=== PATIENT | male | born 1930 | race African-American/Black ===

== ENCOUNTER 2016-11-01 11:58 | Emergency (ER) | payer OTHER ==
[2016-11-01 12:12] VITALS: BMI 27.1
[2016-11-01] MEDS ORDERED: ACETAMINOPHEN 325 MG TABLET (FP) PO ONE (12:59)
--- NOTE | 2016-11-01 13:00 | PDOC ---
History of Present Illness - General History Source: Patient, Family, Old Records Exam Limitations: No Limitations - History of Present Illness Initial Comments: 11/01/16 14:23 The patient is an 86-year-old male, from home, accompanied by family, with a significant past medical history of hypertension, hypercholesterolemia, myocardial infarction with an AICD, diabetes mellitus, diverticulitis who presents to the emergency department via walk-in for further evaluation of cold- like symptoms for the past 2 days. Patient states he has been experiencing cold- like symptoms of an intermittent non-productive cough, chills, cold sweats, rhinorrhea and sneezing. Patient also reports experiencing chest pain, but it is only present when he coughs. He also notes experiencing a band-like headache that was initially present only with coughing, but has not remained constant. He denied sick contacts and recent travel. No sore throat, shortness of breath, lightheadedness, dizziness, abdominal pain, nausea, vomiting. Allergies: Penicillin. IV Contrast Dye. Past Surgical History: AICD Placement ([employer]). Appendectomy. Cholecystectomy. Right hip fracture with hardware. Social History: Former smoker. No eTOH and recreational drug use. Primary Care Physician: Dr. Hema Garrido [phone] Forging Dies Final Finisher: Dr. Mandeep Garcia [phone] <Monica Barrios - Last Filed: 11/01/16 14:24> <Enrique Lizama - Last Filed: 11/01/16 16:25> - General Chief Complaint: Cold Symptoms Stated Complaint: HEADACHES, NAUSEA, COUGH Time Seen by Provider: 11/01/16 12:36 Past History <Monica Barrios - Last Filed: 11/01/16 14:24> - Past Medical History Anemia: No Asthma: No Cancer: No Cardiac Disorders: Yes ([place],VENTRICULAR ARRYTHMIA) CVA: No COPD: No CHF: No Dementia: No Diabetes: No GI Disorders: Yes (ABDOMINAL PAIN,DIVERTICULITIS,DIARRHEA) Disorders: No HTN: Yes Hypercholesterolemia: Yes Liver Disease: No Suicide Attempt (Hx): No Seizures: No Thyroid Disease: No - Surgical History Appendectomy: Yes Cardiac Surgery: ([employer]) Cholecystectomy: Yes Lung Surgery: No Neurologic Surgery: No Orthopedic Surgery: Yes (H/O RIGHT FX HIP WITH HARDWARE) - Immunization History Immunization Up to Date: Yes - Psycho/Social/Smoking Cessation Hx Anxiety: No Suicidal Ideation: No Smoking Status: No Smoking History: Never smoked Have you smoked in the past 12 months: No Number of Cigarettes Smoked Daily: 0 If you are a former smoker, when did you quit?: 40YRS AGO Information on smoking cessation initiated: No Hx Alcohol Use: No Drug/Substance Use Hx: No Substance Use Type: None Hx Substance Use Treatment: No <Enrique Lizama - Last Filed: 11/01/16 16:25> - Past Medical History Allergies/Adverse Reactions: Allergies Allergy/AdvReac Type Severity Reaction Status Date / Time Penicillins Allergy Swelling Verified 11/01/16 12:12 IVP DYE Allergy Hives Uncoded 11/01/16 12:12 Home Medications: Ambulatory Orders Amlodipine Besylate [Norvasc -] 10 mg PO DAILY 11/01/16 Carvedilol [Coreg -] 25 mg PO DAILY 11/01/16 Ezetimibe [Zetia] 10 mg PO DAILY 11/01/16 Folic Acid 1 mg PO DAILY 11/01/16 Furosemide [Lasix -] 20 mg PO DAILY 11/01/16 Losartan Potassium [Cozaar -] 50 mg PO DAILY 11/01/16 Omeprazole 40 mg PO DAILY 11/01/16 Oseltamivir Phosphate [Tamiflu -] 75 mg PO BID #10 capsule 11/01/16 Simvastatin [Zocor -] 20 mg PO HS 11/01/16 Tamsulosin HCl [Flomax] 0.4 mg PO DAILY 11/01/16 Warfarin Sodium [Coumadin] 2 mg PO DAILY 11/01/16 Review of Systems - Review of Systems Able to Perform ROS?: Yes Comments:: 11/01/16 14:23 CONSTITUTIONAL: Reported: +Chills. +Cold Sweats. No reported: Fever, Diaphoresis, Generalized Weakness, Malaise, Loss of Appetite HEENT: Reported: Rhinorrhea No reported:, Nasal Congestion, Throat Pain, Throat Swelling, Difficulty Swallowing, Mouth Swelling, Ear Pain, Eye Pain, Visual Changes CARDIOVASCULAR: Reported: +Chest Pain. No reported: Syncope, Palpitations, Irregular Heart Rate , Lightheadedness, Peripheral Edema RESPIRATORY: Reported: +Cough. No reported: Shortness of Breath, SOB with Exertion, Orthopnea , Wheezing, Stridor, Hemoptysis GASTROINTESTINAL: No reported: Abdominal pain, Abdominal Distension, Nausea, Vomiting, Diarrhea, Constipation, Melena, Hematochezia GENITOURINARY: No reported: Dysuria, Frequency, Urgency, Hesitancy, Flank Pain, Genital Pain MUSCULOSKELETAL: No reported: Myalgia, Arthralgia, Joint Swelling, Back pain, Neck Pain SKIN: No reported: Rash, Itching, Pallor HEMEATOLOGIC/IMMUNOLOGIC: No reported: Easy Bleeding, Easy Bruising, Lymphadenopathy, Frequent infections ENDOCRINE: No reported: Unexplained Weight Gain, Unexplained Weight Loss, Heat Intolerance , Cold Intolerance NEUROLOGIC: Reoprted: +Headache. No reported: Focal Weakness, Paresthesias, Vertigo, Lightheadedness, Unsteady Gait, Seizure, Mental Status Changes, Incontinence PSYCHIATRIC: No reported: Anxiety, Depression <Monica Barrios - Last Filed: 11/01/16 14:24> *Physical Exam - Vital Signs Last Vital Signs Temp Pulse Resp BP Pulse Ox 100.6 F H 90 18 134/73 97 11/01/16 12:09 11/01/16 12:09 11/01/16 12:09 11/01/16 12:09 11/01/16 12:09 - Physical Exam Comments: 11/01/16 14:24 GENERAL: The patient is awake, alert, and fully oriented, Nontoxic - in no acute distress. HEAD: Normocephalic, atraumatic. EYES: extraocular movements intact, sclera anicteric, conjunctiva clear. ENT: Normal voice, Moist mucous membranes, mild nasal congestion NECK: Normal range of motion, supple LUNGS: Breath sounds equal, clear to auscultation bilaterally. No wheezes, no rhonchi, no rales. HEART: Regular rate and rhythm, normal S1 and S2 without murmur, rub or gallop. ABDOMEN: Soft, nontender, normoactive bowel sounds. No guarding, no rebound. No CVA tenderness EXTREMITIES: Normal range of motion, no edema. No clubbing or cyanosis. No cords, erythema, or tenderness. NEUROLOGICAL: No facial assymetry, Normal speech, moving all 4 extermities spontaneously and symmetrically PSYCH: Normal mood, normal affect. SKIN: Warm, Dry, normal turgor. <Monica Barrios - Last Filed: 11/01/16 14:24> - Vital Signs Last Vital Signs Temp Pulse Resp BP Pulse Ox 100.6 F H 90 18 134/73 97 11/01/16 12:09 11/01/16 12:09 11/01/16 12:09 11/01/16 12:09 11/01/16 12:09 <Enrique Lizama - Last Filed: 11/01/16 16:25> Heart Score/ECG Review - ECG Impressions Comment:: 11/01/16 15:51 Twelve-lead EKG was performed and reviewed by me. There is normal sinus rhythm with a normal rate. Rate of 61 Left axis deviation Right bundle-branch block Q waves in the inferolateral leads <Enrique Lizama - Last Filed: 11/01/16 16:25> ED Treatment Course - LABORATORY CBC & Chemistry Diagram: 11/01/16 13:10 11/01/16 13:10 - ADDITIONAL ORDERS Additional order review: Laboratory Results 11/01/16 13:10 Sodium 143 Potassium 4.6 Chloride 106 Carbon Dioxide 27 Anion Gap 10 BUN 15 D Creatinine 1.9 H D Creat Clearance w eGFR 33.78 Random Glucose 110 H Calcium 8.7 Total Bilirubin 0.7 AST 39 H D ALT 34 Alkaline Phosphatase 82 Total Protein 7.2 Albumin 4.0 11/01/16 13:10 Influenza Types A,B Antigen (NICK) - Final Nasopharyngeal Swab - Final 11/01/16 13:10 RBC 4.92 MCV 90.0 MCHC 33.6 RDW 16.0 H MPV 8.1 Neutrophils % Y Lymphocytes % Y - Medications Given in the ED: ED Medications Discontinued Medications Generic Name Dose Route Start Last Admin Trade Name Carlo PRN Reason Stop Dose Admin Acetaminophen 650 mg 11/01/16 12:59 11/01/16 13:15 Tylenol - PO 11/01/16 13:00 650 mg ONCE ONE Administration <Monica Barrios - Last Filed: 11/01/16 14:24> - LABORATORY CBC & Chemistry Diagram: 11/01/16 13:10 11/01/16 13:10 <Enrique Lizama - Last Filed: 11/01/16 16:25> Medical Decision Making - Medical Decision Making 11/01/16 13:00 86y M hx of htn, hl, cad, on coumadin, presents with nasal congestion, sneezing , nonproductive cough, chills x 3 days, no recent trauvel, on exam pt in no distress, lungs clear. suspect influenza/flu like illness vs. pna will ck labs tylenol for fever will ck cxr ekg will reassess A portion of this note was documented by scribe services under my direction. I have reviewed the details of the note, within reason, and agree with the documentation with the following case summary and management plan written by me 11/01/16 15:52 Patient's blood work was reviewed The patient's chest x-ray is negative for any acute infiltrates The patient's influenza is positive We'll treat the patient with Tamiflu Will discharge patient follow up with her primary care I discussed the physical exam findings, ancillary test results and final diagnoses with the patient. I answered all of the patient's questions. The patient was satisfied with the care received and felt comfortable with the discharge plan and treatment plan. The patient will call their primary care physician within 24 hours to arrange follow-up and will return to the Emergency Department with any new, persistent or worsening symptoms. <Enrique Lizama - Last Filed: 11/01/16 16:25> *DC/Admit/Observation/Transfer - Attestations Scribe Attestion: 11/01/16 14:24 Documentation prepared by Monica Barrios, acting as medical field representative for Enrique Lizama MD. <Monica Barrios - Last Filed: 11/01/16 14:24> - Discharge Dispostion Admit: No <Enrique Lizama - Last Filed: 11/01/16 16:25> Diagnosis at time of Disposition: Influenza A - Discharge Dispostion Disposition: HOME Condition at time of disposition: Improved - Prescriptions Prescriptions: Oseltamivir Phosphate [Tamiflu -] 75 mg PO BID #10 capsule - Referrals Referrals: Hema Garrido MD [Primary Care Provider] - - Patient Instructions Printed Discharge Instructions: DI for Influenza -- Adult Additional Instructions: Return to the emergency department immediately with ANY new, persistent or worsening symptoms. You MUST call and follow up with your doctor tomorrow for further evaluation of your symptoms. Results were discussed with you. Please make sure your doctor reviews the results of your emergency evaluation. If you had any xrays during your visit, it was read preliminarily by myself, a Radiologist will review it and if there are any additional findings we will call you. Print Language: ROMANSH
[2016-11-01] MEDS ORDERED: ACETAMINOPHEN 325 MG TABLET (FP) ONE (13:06)
[2016-11-01 13:24] LABS: MCH 30.3 pg (25.7-33.7); MCHC 33.6 g/dl (32.0-35.9); MEAN PLT VOLUME 8.1 fl (7.5-11.1); PLATELET COUNT 115 K/MM3 (134-434); WHITE BLOOD COUNT 8.8 K/mm3 (4.0-10.0)
[2016-11-01 13:43] LABS: CALCIUM 8.7 mg/dL (8.5-10.1)
[2016-11-01 13:49] LABS: BILIRUBIN,TOTAL 0.7 mg/dL (0.2-1.0); CREATININE 1.9 mg/dL (0.7-1.3); TOT PROT 7.2 g/dl (6.4-8.2)
[2016-11-01] MEDS ORDERED: OSELTAMIVIR PHOSPHATE 75 MG CAPSULE PO ONE (15:51)
[2016-11-01] MEDS ORDERED: OSELTAMIVIR PHOSPHATE 75 MG CAPSULE ONE (16:19)
[2016-11-01] MEDS ORDERED: IBUPROFEN 400 MG TABLET (FP) PO ONE ×2 (17:05→17:23)
--- NOTE | 2016-11-01 17:23 | EKG ---
Test Reason : Blood Pressure : / mmHG Vent. Rate : 061 BPM Atrial Rate : 061 BPM P-R Int : 208 ms QRS Dur : 134 ms QT Int : 392 ms P-R-T Axes : 032 -72 -21 degrees QTc Int : 394 ms Suspect unspecified pacemaker failure BASELINE ARTIFACT UNDETERMINED RHYTHM LEFT AXIS DEVIATION RIGHT BUNDLE BRANCH BLOCK MINIMAL VOLTAGE CRITERIA FOR LVH, MAY BE NORMAL VARIANT INFERIOR INFARCT (CITED ON OR BEFORE 20-JUL-2014) ANTEROLATERAL INFARCT , AGE UNDETERMINED ABNORMAL ECG WHEN COMPARED WITH ECG OF 27-AUG-2015 15:51, POSSIBLE RHYTHM CHANGE CLINICAL CORRELATION IS RECOMMENDED Confirmed by KAVITHA LONG MD ([id number]) on 11/01/2016 5:23:13 PM Referred By: Confirmed By:KAVITHA LONG MD
[2016-11-01 17:28] VITALS: BP 125/63; PULSE 84; TEMP 101
== END 2016-11-01 17:16 | disposition home or self-care (01) ==
LOC: JER 11:58
DX: J09.X2 Influenza due to identified novel influenza A virus with other respiratory manifestations (principal); I25.2 Old myocardial infarction; I10 Essential (primary) hypertension; Z95.810 Presence of automatic (implantable) cardiac defibrillator; E78.00 Pure hypercholesterolemia, unspecified
CPT/HCPCS: 36415; 71020-TC; 80053; 85025; 87804; 93005; 93010; 99282-25

== ENCOUNTER 2017-01-31 16:03 | Emergency (ER) | payer OTHER, BC ==
[2017-01-31 16:17] VITALS: BP 146/93; PULSE 85; TEMP 98.4; BMI 25.2
--- NOTE | 2017-01-31 16:59 | PDOC ---
History of Present Illness - General History Source: Patient, Family, Old Records Exam Limitations: No Limitations - History of Present Illness Initial Comments: 01/31/17 17:38 The patient is an 86 year old male, with a significant past medical history of hypertension, hyperlipidemia, diabetes, [place] s/p AICD and diverticulitis, who presents to the emergency department with one episode (patient states a small amount) of rectal bleeding earlier this afternoon. The patient reports that he has been feeling constipated over the past 2-3 days. Currently in the ED, the patient is additionally endorsing diffuse abdominal pain, which he states is worst in the RLQ. The patient denies a past history of hemorrhoids. The patient reports that he is on Coumadin. The patient's family is at the bedside. Allergies: Penicillins, IV Contrast Dye. Past Surgical History: AICD Placement ([employer]); Appendectomy; Cholecystectomy; Right hip fracture w/ hardware. Social History: Former smoker (quit 40 years ago). Denies alcohol or drug use. PCP: Dr. Hema Garrido Parts Room Associate: Dr. Garcia <Jeni Esparza - Last Filed: 01/31/17 23:32> <Maria T Orourke - Last Filed: 02/01/17 01:44> - General Chief Complaint: Rectal Bleed Stated Complaint: RECTAL BLEED/COUMADIN Time Seen by Provider: 01/31/17 16:48 Past History <Jeni Esparza - Last Filed: 01/31/17 23:32> - Past Medical History Anemia: No Asthma: No Cancer: No Cardiac Disorders: Yes ([place],VENTRICULAR ARRYTHMIA) CVA: No COPD: No CHF: No Dementia: No Diabetes: No GI Disorders: Yes (ABDOMINAL PAIN,DIVERTICULITIS,DIARRHEA) Disorders: No HTN: Yes Hypercholesterolemia: Yes Liver Disease: No Suicide Attempt (Hx): No Seizures: No Thyroid Disease: No - Surgical History Appendectomy: Yes 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) Cholecystectomy: Yes Lung Surgery: No Neurologic Surgery: No Orthopedic Surgery: Yes (H/O RIGHT FX HIP WITH HARDWARE) - Immunization History Immunization Up to Date: Yes - Psycho/Social/Smoking Cessation Hx Anxiety: No Suicidal Ideation: No Smoking Status: No Smoking History: Never smoked Have you smoked in the past 12 months: No Number of Cigarettes Smoked Daily: 0 If you are a former smoker, when did you quit?: 40YRS AGO Information on smoking cessation initiated: No Hx Alcohol Use: No Drug/Substance Use Hx: No Substance Use Type: None Hx Substance Use Treatment: No <Maria T Orourke - Last Filed: 02/01/17 01:44> - Past Medical History Allergies/Adverse Reactions: Allergies Allergy/AdvReac Type Severity Reaction Status Date / Time Penicillins Allergy Swelling Verified 01/31/17 16:14 IVP DYE Allergy Hives Uncoded 01/31/17 16:14 Home Medications: Ambulatory Orders Amlodipine Besylate [Norvasc -] 5 mg PO DAILY 11/01/16 Carvedilol [Coreg -] 25 mg PO DAILY 11/01/16 Ezetimibe [Zetia] 10 mg PO DAILY 11/01/16 Folic Acid 1 mg PO DAILY 11/01/16 Furosemide [Lasix -] 20 mg PO DAILY 11/01/16 Losartan Potassium [Cozaar -] 50 mg PO DAILY 11/01/16 Omeprazole 40 mg PO DAILY 11/01/16 Simvastatin [Zocor -] 20 mg PO HS 11/01/16 Tamsulosin HCl [Flomax] 0.4 mg PO DAILY 11/01/16 Warfarin Sodium [Coumadin] 2 mg PO DAILY 11/01/16 Review of Systems - Review of Systems Able to Perform ROS?: Yes Comments:: 01/31/17 17:17 GENERAL/CONSTITUTIONAL: No fever or chills. No weakness. HEAD, EYES, EARS, NOSE AND THROAT: No change in vision. No ear pain or discharge. No sore throat. CARDIOVASCULAR: No chest pain or shortness of breath. RESPIRATORY: No cough, wheezing, or hemoptysis. GASTROINTESTINAL: +Rectal bleeding, constipation, abdominal pain. No nausea, vomiting or diarrhea. GENITOURINARY: No dysuria, frequency, or change in urination. MUSCULOSKELETAL: No joint or muscle swelling or pain. No neck or back pain. SKIN: No rash. NEUROLOGIC: No headache, vertigo, loss of consciousness, or change in strength/ sensation. ENDOCRINE: No increased thirst. No abnormal weight change. HEMATOLOGIC/LYMPHATIC: No anemia, easy bleeding, or history of blood clots. ALLERGIC/IMMUNOLOGIC: No hives or skin allergy. <Jeni Esparza - Last Filed: 01/31/17 23:32> *Physical Exam - Vital Signs Last Vital Signs Temp Pulse Resp BP Pulse Ox 98.4 F 85 18 146/93 100 01/31/17 16:15 01/31/17 16:15 01/31/17 16:15 01/31/17 16:15 01/31/17 16:15 - Physical Exam Comments: 01/31/17 18:34 GENERAL: Awake, alert, and fully oriented, in no acute distress. HEAD: No signs of trauma. EYES: PERRLA, EOMI, sclera anicteric, conjunctiva clear. ENT: Auricles normal inspection, hearing grossly normal, nares patent, oropharynx clear without exudates. Moist mucosa. NECK: Normal ROM, supple, no lymphadenopathy, JVD, or masses. LUNGS: Breath sounds equal, clear to auscultation bilaterally. No wheezes, and no crackles. HEART: Regular rate and rhythm, normal S1 and S2, no murmurs, rubs or gallops. ABDOMEN: Diffuse moderate abdominal tenderness, worst in RLQ. Soft, normoactive bowel sounds. No guarding, no rebound. No masses. EXTREMITIES: Normal range of motion, no edema. No clubbing or cyanosis. No cords , erythema, or tenderness. NEUROLOGICAL: Cranial nerves II through XII intact. Normal speech, normal gait. SKIN: Warm, dry, normal turgor, no rashes or lesions noted. RECTAL EXAM: Small hemorrhoid at the 6 o'clock position. <Jeni Esparza - Last Filed: 01/31/17 23:32> - Vital Signs Last Vital Signs Temp Pulse Resp BP Pulse Ox 98.4 F 85 18 146/93 100 01/31/17 16:15 01/31/17 16:15 01/31/17 16:15 01/31/17 16:15 01/31/17 16:15 <Maria T Orourke - Last Filed: 02/01/17 01:44> ED Treatment Course - LABORATORY CBC & Chemistry Diagram: 01/31/17 18:10 01/31/17 20:24 <Jeni Esparza - Last Filed: 01/31/17 23:32> - LABORATORY CBC & Chemistry Diagram: 01/31/17 18:10 01/31/17 20:24 <Maria T Orourke - Last Filed: 02/01/17 01:44> Medical Decision Making - Medical Decision Making 01/31/17 23:32 EXAM: CT/ABDOMEN & PELVIS CT W/O CONTR Reviewed By: Dr. Norris Wheat IMPRESSION: No definite CT findings of acute pathology are identified. Status post cholecystectomy. Mild left-sided colonic diverticulosis. Small umbilical hernia containing fat only. <Jeni Esparza - Last Filed: 01/31/17 23:32> - Medical Decision Making Pt monitored in the ED for ~6 hours, no further episodes of bleeding. INR is appropriate. I suspect that the bleeding was related to straining, hard stool, and hemorrhoid inflammation. No acute findings on abd CT. Stable for DC home with outpatient f/u. <Maria T Orourke - Last Filed: 02/01/17 01:44> *DC/Admit/Observation/Transfer - Attestations Scribe Attestion: 01/31/17 17:09 Documentation prepared by Jeni Esparza, acting as forensic medical examiner for Maria T Orourke MD. <Jeni Esparza - Last Filed: 01/31/17 23:32> - Discharge Dispostion Admit: No <Maria T Orourke - Last Filed: 02/01/17 01:44> Diagnosis at time of Disposition: Hemorrhoid Qualifiers: Hemorrhoid type: unspecified Qualified Code(s): K64.9 - Unspecified hemorrhoids Constipation Qualifiers: Constipation type: unspecified constipation type Qualified Code(s): K59.00 - Constipation, unspecified - Discharge Dispostion Disposition: HOME Condition at time of disposition: Stable - Referrals Referrals: Hema Garrido MD [Primary Care Provider] - - Patient Instructions Printed Discharge Instructions: DI for Hemorrhoids Additional Instructions: COLACE AND SENNA EVERY NIGHT AT BEDTIME TO SOFTEN STOOLS. USE MIRALAX IF YOU HAVE WORSENING CONSTIPATION. FOR THE HEMORRHOID, USE TUCKS PADS, WITCH TOY, AND PREPARATION H. SITZ BATHS TO HELP SOOTHE DISCOMFORT.
[2017-01-31 18:48] LABS: BASOPHIL 0.2 % (0-2.0); EOSINOPHIL 2.2 % (0-4.5); MCH 30.5 pg (25.7-33.7); MEAN CELL VOLUME 89.6 fl (80-96); MEAN PLT VOLUME 8.5 fl (7.5-11.1); NEUTROPHILS 63.3 % (42.8-82.8); PLATELET COUNT 159 K/MM3 (134-434); RDW 16.4 % (11.9-15.9); WHITE BLOOD COUNT 8.5 K/mm3 (4.0-10.0)
[2017-01-31 18:58] LABS: INR 2.84 (0.82-1.09); PROTHROMBIN TIME (PATIENT) 31.9 SEC (9.98-11.88)
[2017-01-31 20:57] LABS: BILIRUBIN,TOTAL 0.7 mg/dL (0.2-1.0); CALCIUM 9.1 mg/dL (8.5-10.1); COCKROFT - GAULT 29.4; CREATININE 1.8 mg/dL (0.7-1.3); TOT PROT 7.2 g/dl (6.4-8.2)
[2017-01-31] MEDS ORDERED: DOCUSATE SODIUM 100 MG CAPSULE (FP) PO ONE (23:35)
[2017-01-31] MEDS ORDERED: MAGNESIUM CITRATE 300 ML BOTTLE PO ONE (23:35)
[2017-01-31] MEDS ORDERED: SENNOSIDES 8.6MG TABLET (FP) PO ONE (23:36)
[2017-02-01] MEDS ORDERED: DOCUSATE SODIUM 100 MG CAPSULE (FP) PO ONE (00:14)
[2017-02-01] MEDS ORDERED: MAGNESIUM CITRATE 300 ML BOTTLE ONE (00:14)
--- NOTE | 2017-02-01 13:12 | EKG ---
Test Reason : Blood Pressure : / mmHG Vent. Rate : 065 BPM Atrial Rate : 065 BPM P-R Int : 232 ms QRS Dur : 140 ms QT Int : 444 ms P-R-T Axes : 076 -70 -16 degrees QTc Int : 461 ms SINUS RHYTHM WITH 1ST DEGREE A-V BLOCK LEFT AXIS DEVIATION RIGHT BUNDLE BRANCH BLOCK INFERIOR INFARCT (CITED ON OR BEFORE 20-JUL-2014) ANTEROLATERAL INFARCT (CITED ON OR BEFORE 01-NOV-2016) ABNORMAL ECG WHEN COMPARED WITH ECG OF 01-NOV-2016 14:55, QT HAS LENGTHENED CLINICAL CORRELATION IS RECOMMENDED Confirmed by MAURICIO CASTILLO MD ([id number]) on 02/01/2017 1:12:16 PM Referred By: Confirmed By:MAURICIO CASTILLO MD
== END 2017-02-01 00:27 | disposition home or self-care (01) ==
LOC: JER 16:03
DX: K64.9 Unspecified hemorrhoids (principal); K59.00 Constipation, unspecified; K57.20 Diverticulitis of large intestine with perforation and abscess without bleeding; I10 Essential (primary) hypertension; I25.2 Old myocardial infarction; Z95.810 Presence of automatic (implantable) cardiac defibrillator
CPT/HCPCS: 36415; 74176-TC; 80053; 82272; 83690; 85025; 85610; 86850; 86900; 86901; 93005; 93010; 99283-25

== ENCOUNTER 2017-06-12 08:11 | Inpatient (IN) | payer OTHER, BC ==
[2017-06-12 08:18] VITALS: BMI 26.8
--- NOTE | 2017-06-12 08:48 | PDOC ---
History of Present Illness - General Chief Complaint: Pain Stated Complaint: bruised leg, on coumadin SWOLLEN LEGS Time Seen by Provider: 06/12/17 08:48 - History of Present Illness Initial Comments: 87 year old male with HTN, HLD, Ventricular arrhythmia (S/P pacemaker on Coumadin), DVT in the past in left lower extremity presenting with left leg pain and knee swelling after potential trauma. Patient states that he had a some left knee bruising and swelling that he is unsure of any trauma to the area recently. He saw his PCP, Dr. Garrido, and there was no suspicion for anything serious. A few days after the visit, he had a small area of swelling and pain over his left tibia. He denies trauma to that area as well. Denies SOB , fevers, chills, nausea, vomiting, diarrhea, or other sick symptoms. 06/12/17 10:32 Past History - Past Medical History Allergies/Adverse Reactions: Allergies Allergy/AdvReac Type Severity Reaction Status Date / Time Penicillins Allergy Swelling Verified 06/12/17 08:14 IVP DYE Allergy Hives Uncoded 06/12/17 08:14 Home Medications: Ambulatory Orders Amlodipine Besylate [Norvasc -] 5 mg PO DAILY 11/01/16 Carvedilol [Coreg -] 25 mg PO DAILY 11/01/16 Ezetimibe [Zetia] 10 mg PO DAILY 11/01/16 Folic Acid 1 mg PO DAILY 11/01/16 Furosemide [Lasix -] 20 mg PO DAILY 11/01/16 Losartan Potassium [Cozaar -] 50 mg PO DAILY 11/01/16 Omeprazole 40 mg PO DAILY 11/01/16 Simvastatin [Zocor -] 20 mg PO HS 11/01/16 Tamsulosin HCl [Flomax] 0.4 mg PO DAILY 11/01/16 Warfarin Sodium [Coumadin] 2 mg PO DAILY 11/01/16 Anemia: No Asthma: No Cancer: No Cardiac Disorders: Yes (CA,VENTRICULAR ARRYTHMIA) CVA: No COPD: No CHF: No Dementia: No Diabetes: No GI Disorders: Yes (ABDOMINAL PAIN,DIVERTICULITIS,DIARRHEA) Disorders: No HTN: Yes Hypercholesterolemia: Yes Liver Disease: No Suicide Attempt (Hx): No Seizures: No Thyroid Disease: No - Surgical History Appendectomy: Yes 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) Cholecystectomy: Yes Lung Surgery: No Neurologic Surgery: No Orthopedic Surgery: Yes (H/O RIGHT FX HIP WITH HARDWARE) - Immunization History Immunization Up to Date: Yes - Psycho/Social/Smoking Cessation Hx Anxiety: No Suicidal Ideation: No Smoking Status: No Smoking History: Never smoked Have you smoked in the past 12 months: No Number of Cigarettes Smoked Daily: 0 If you are a former smoker, when did you quit?: 40YRS AGO Information on smoking cessation initiated: No Hx Alcohol Use: No Drug/Substance Use Hx: No Substance Use Type: None Hx Substance Use Treatment: No Review of Systems - Review of Systems Constitutional: No: Chills, Diaphoresis, Fever HEENTM: No: Blurred Vision, Recent change in vision, Double Vision Respiratory: No: Cough, Shortness of Breath Cardiac (ROS): No: Chest Pain, Edema, Lightheadedness ABD/GI: No: Constipated, Diarrhea, Nausea, Vomiting : No: Burning, Dysuria *Physical Exam - Vital Signs Last Vital Signs Temp Pulse Resp BP Pulse Ox 98.0 F 77 18 152/72 100 06/12/17 08:16 06/12/17 08:16 06/12/17 08:16 06/12/17 08:16 06/12/17 08:16 - Physical Exam General Appearance: Yes: Nourished, Appropriately Dressed. No: Apparent Distress HEENT: positive: EOMI, MAKENZIE, Normal ENT Inspection, Normal Voice Neck: positive: Trachea midline, Normal Thyroid, Supple. negative: Tender, Rigid Respiratory/Chest: positive: Lungs Clear, Normal Breath Sounds. negative: Chest Tender, Respiratory Distress, Accessory Muscle Use Cardiovascular: positive: Regular Rhythm, Regular Rate, S1, S2. negative: Murmur Gastrointestinal/Abdominal: positive: Normal Bowel Sounds, Flat, Soft. negative : Tender Extremity: positive: Normal Range of Motion, Tender, Other (Echymosses on medial aspect of left knee with some light selling. Not TTP. Calf not ttp, negative donna's sign, no palpable cord. 2 cm in diameter area of swellign and tenderness over mid left tibia with some light echymossis.). negative: Calf Tenderness, Erythema Integumentary: positive: Dry, Warm, Ecchymosis. negative: Normal Color, Cyanotic, Erythema Neurologic: positive: Fully Oriented, Alert, Normal Mood/Affect, Motor Strength 02/25 ED Treatment Course - LABORATORY CBC & Chemistry Diagram: 06/12/17 09:22 06/12/17 09:22 Medical Decision Making - Medical Decision Making 87 year old with PMH of left leg DVT and CA (s/p defib replacement on Coumadin ) presenting with left leg pain and minor knee swelling. PT/INR 2.59 and CBC WNL , CMP significant for creatinine 1.9 (stable per CKD history). Doppler significant for DVT in superficial and deep left femoral veins. Unclear if new or chronic DVT. Spoke with Dr. Parham of Vascular at 11:30 AM and it is unclear per the land checker's report and images as well. Spoke to Esther Esquivel who is covering for Dr. Garrido who agrees to admission. Will hold Coumadin per Dr. Parham for potential IVC placement tomorrow. Should probably be NPO at night as well but can defer to inpatient physician. Patient admitted for obs under Dr. Garrido. 06/12/17 12:42 *DC/Admit/Observation/Transfer Diagnosis at time of Disposition: DVT (deep venous thrombosis) - Discharge Dispostion Condition at time of disposition: Stable Admit: Yes - Referrals Referrals: Hema Garrido MD [Primary Care Provider] - - Attestations Physician Attestion: I, Dr. Barb Jackson, attest that this document has been prepared under my direction and personally reviewed by me in its entirety. I further attest, that it accurately reflects all work, treatment, procedures and medical decision -making performed by me. 06/12/17 13:05 06/12/17 13:35
[2017-06-12 09:34] LABS: BASOPHIL 0.2 % (0-2.0); EOSINOPHIL 6.7 % (0-4.5); MCH 30.3 pg (25.7-33.7); MCHC 33.4 g/dl (32.0-35.9); MEAN CELL VOLUME 90.5 fl (80-96); NEUTROPHILS 54.7 % (42.8-82.8); PLATELET COUNT 116 K/MM3 (134-434); RDW 15.8 % (11.9-15.9)
[2017-06-12 09:59] LABS: INR 2.46 (0.82-1.09); PROTHROMBIN TIME (PATIENT) 27.6 SEC (9.98-11.88)
[2017-06-12 10:30] LABS: ALBUMIN 3.7 g/dl (3.4-5.0); ANION GAP 7 (8-16); BILIRUBIN,TOTAL 0.6 mg/dL (0.2-1.0); CALCIUM 8.7 mg/dL (8.5-10.1); CO2 26 mmol/L (21-32); CREATININE 1.9 mg/dL (0.7-1.3); GLUCOSE,RANDOM 123 mg/dL (74-106); SGOT/AST 18 U/L (15-37); SGPT/ALT 25 U/L (12-78); TOT PROT 6.9 g/dl (6.4-8.2)
[2017-06-12 10:31] LABS: ALK PHOS 70 U/L (45-117)
[2017-06-12] MEDS ORDERED: ATORVASTATIN CA 10 MG TABLET (FP) PO SCH (22:00)
[2017-06-12] MEDS: ALREX OU SCH (22:46)
[2017-06-12] MEDS: IPRATROPIUM BROMIDE 0.06% NR PRN (22:49)
[2017-06-13 07:29] LABS: MCHC 34.7 g/dl (32.0-35.9); MEAN CELL VOLUME 89.4 fl (80-96); MEAN PLT VOLUME 8.3 fl (7.5-11.1); PLATELET COUNT 127 K/MM3 (134-434); RDW 15.5 % (11.9-15.9); WHITE BLOOD COUNT 6.2 K/mm3 (4.0-10.0)
[2017-06-13 07:37] LABS: INR 2.16 (0.82-1.09); PROTHROMBIN TIME (PATIENT) 24.1 SEC (9.98-11.88)
[2017-06-13 07:45] LABS: ANION GAP 6 (8-16); CALCIUM 8.7 mg/dL (8.5-10.1); CO2 27 mmol/L (21-32); GLUCOSE,RANDOM 87 mg/dL (74-106)
[2017-06-13 07:46] LABS: CREATININE 1.5 mg/dL (0.7-1.3)
[2017-06-13] MEDS: CARVEDILOL 25 MG TABLET (FP) PO SCH (09:40)
[2017-06-13] MEDS: amLODIPine BESYLATE 10 MG TABLET (FP) PO SCH (09:40)
[2017-06-13] MEDS: AMITIZA 8 MCG PO SCH (09:42)
[2017-06-13] MEDS: LOSARTAN POTASSIUM 50 MG TABLET (FP) PO SCH (09:42)
--- NOTE | 2017-06-13 11:30 | EKG ---
Test Reason : Blood Pressure : / mmHG Vent. Rate : 066 BPM Atrial Rate : 066 BPM P-R Int : 220 ms QRS Dur : 152 ms QT Int : 446 ms P-R-T Axes : 007 -73 017 degrees QTc Int : 467 ms SINUS RHYTHM WITH 1ST DEGREE A-V BLOCK LEFT AXIS DEVIATION RIGHT BUNDLE BRANCH BLOCK INFERIOR INFARCT (CITED ON OR BEFORE 20-JUL-2014) ANTEROLATERAL INFARCT (CITED ON OR BEFORE 01-NOV-2016) ABNORMAL ECG WHEN COMPARED WITH ECG OF 31-JAN-2017 18:22, NO SIGNIFICANT CHANGE WAS FOUND Confirmed by KAVITHA LONG MD ([id number]) on 06/13/2017 11:30:07 AM Referred By: Confirmed By:KAVITHA LONG MD
[2017-06-13] MEDS ORDERED: PT OWN MED DRAWER 7, Y5N ONE (12:30)
[2017-06-13] MEDS: IPRATROPIUM BROMIDE 0.06% NR PRN (12:31)
[2017-06-13] MEDS: ALREX OU SCH ×2 (12:32→22:46)
--- NOTE | 2017-06-13 13:51 | HP ---
Admitting History and Physical - Primary Care Physician PCP: Hema Garrido - Admission Chief Complaint: left leg swelling History of Present Illness: ER HISTORY - History of Present Illness Initial Comments: 87 year old male with HTN, HLD, Ventricular arrhythmia (S/P pacemaker on Coumadin), DVT in the past in left lower extremity presenting with left leg pain and knee swelling after potential trauma. Patient states that he had a some left knee bruising and swelling that he is unsure of any trauma to the area recently. He saw his PCP, Dr. Garrido, and there was no suspicion for anything serious. A few days after the visit, he had a small area of swelling and pain over his left tibia. He denies trauma to that area as well. Denies SOB , fevers, chills, nausea, vomiting, diarrhea, or other sick symptoms. Pt examined by me in the floors Pt seen by me in the office a few days ago to check INR and also to examined ecchymosis in left leg-- appeared to be trauma related and INR was 2.3. He came to ER last night with a swelling on distal left leg-- sono confirmed DVT .Pt has h./o DVT many years ago is on Coumadin. No complaints of leg pain . History Source: Patient Limitations to Obtaining History: No Limitations - Past Medical History Cardiovascular: Yes: AFIB (paroxysmal), CAD, HTN, Hyperlipdemia Pulmonary: Yes: COPD Musculoskeletal: Yes: Chronic low back pain Additional Past Medical History: h/o DVT - Past Surgical History Past Surgical History: Yes: AICD, Joint Replacement - Smoking History Smoking history: Never smoked Have you smoked in the past 12 months: No Aproximately how many cigarettes per day: 0 If you are a former smoker, when did you quit?: 40YRS AGO - Alcohol/Substance Use Hx Alcohol Use: No Home Medications - Allergies Allergies/Adverse Reactions: Allergies Allergy/AdvReac Type Severity Reaction Status Date / Time Penicillins Allergy Swelling Verified 06/12/17 08:14 IVP DYE Allergy Hives Uncoded 06/12/17 08:14 - Home Medications Home Medications: Ambulatory Orders Amlodipine Besylate [Norvasc -] 5 mg PO DAILY 11/01/16 Carvedilol [Coreg -] 25 mg PO DAILY 11/01/16 Ezetimibe [Zetia] 10 mg PO DAILY 11/01/16 Folic Acid 1 mg PO DAILY 11/01/16 Furosemide [Lasix -] 20 mg PO DAILY 11/01/16 Losartan Potassium [Cozaar -] 50 mg PO DAILY 11/01/16 Omeprazole 40 mg PO DAILY 11/01/16 Simvastatin [Zocor -] 20 mg PO HS 11/01/16 Tamsulosin HCl [Flomax] 0.4 mg PO DAILY 11/01/16 Warfarin Sodium [Coumadin] 2 mg PO DAILY 11/01/16 Review of Systems - Review of Systems Constitutional: denies: Chills, Fever Cardiovascular: denies: Chest Pain Respiratory: denies: Cough, SOB Physical Examination Vital Signs: Vital Signs Temperature 98.2 F 06/13/17 10:00 Pulse Rate 69 06/13/17 10:00 Respiratory Rate 18 06/13/17 10:00 Blood Pressure 153/79 06/13/17 10:00 O2 Sat by Pulse Oximetry (%) 96 06/13/17 09:00 Constitutional: Yes: No Distress, Calm Cardiovascular: Yes: Regular Rate and Rhythm Respiratory: Yes: CTA Bilaterally Gastrointestinal: Yes: Normal Bowel Sounds, Soft. No: Distention, Tenderness Extremities: Yes: Other (ecchymosis medial above left knee) Edema: Yes (left leg slight) Edema: LLE: Trace Psychiatric: Yes: Alert, Oriented Labs: CBC, BMP 06/13/17 06:00 06/13/17 06:00 Imaging - Results Chest X-ray: Image Reviewed Ultrasound: Report Reviewed (positive DVT) EKG: Report Reviewed (Sinus) Problem List - Problems (1) DVT (deep venous thrombosis) Code(s): I82.409 - ACUTE EMBOLISM AND THOMBOS UNSP DEEP VN UNSP LOWER EXTREMITY Qualifiers: DVT location: lower extremity Laterality: left (2) Paroxysmal a-fib Code(s): I48.0 - PAROXYSMAL ATRIAL FIBRILLATION (3) HTN (hypertension) Code(s): I10 - ESSENTIAL (PRIMARY) HYPERTENSION (4) CHF (congestive heart failure) Code(s): I50.9 - HEART FAILURE, UNSPECIFIED Assessment/Plan PLAN New DVT despite Coumadin INR is therapeutic Vascular evaluation Hold Coumadin for now Start Heparin drip check labs Hematology evaluation
[2017-06-13] MEDS ORDERED: HEPARIN NA (PORCINE) 5,000 UNITS/ML 1ML VIAL IVPUSH PRN ×2 (14:02)
[2017-06-13] MEDS: PANTOPRAZOLE 40 MG TABLET (FP) PO SCH (14:32)
[2017-06-13] MEDS: EZETIMIBE 10 MG TABLET (FP) PO SCH (14:32)
[2017-06-13] MEDS: TAMSULOSIN HCL 0.4 MG CAP.ER.24H (FP) PO SCH (14:32)
[2017-06-13] MEDS ORDERED: POLYETHYLENE GLYCOL 3350 119 GM BTL PO ONE (17:40)
[2017-06-13] MEDS: HEPARIN INFUSION - 500 ML IVPB SCH (17:44)
--- NOTE | 2017-06-13 19:54 | CONSULT ---
Consult - Past Medical History Cardio/Vascular: Yes: AFIB (paroxysmal), CAD, HTN, Hyperlipdemia Pulmonary: Yes: COPD Musculoskeletal: Yes: Chronic low back pain - Past Surgical History Past Surgical History: Yes: AICD, Joint Replacement - Alcohol/Substance Use Hx Alcohol Use: No - Smoking History Smoking history: Never smoked Have you smoked in the past 12 months: No Aproximately how many cigarettes per day: 0 If you are a former smoker, when did you quit?: 40YRS AGO Home Medications - Allergies Allergies/Adverse Reactions: Allergies Allergy/AdvReac Type Severity Reaction Status Date / Time Penicillins Allergy Swelling Verified 06/12/17 08:14 IVP DYE Allergy Hives Uncoded 06/12/17 08:14 - Home Medications Home Medications: Ambulatory Orders Amlodipine Besylate [Norvasc -] 5 mg PO DAILY 11/01/16 Carvedilol [Coreg -] 25 mg PO DAILY 11/01/16 Ezetimibe [Zetia] 10 mg PO DAILY 11/01/16 Folic Acid 1 mg PO DAILY 11/01/16 Furosemide [Lasix -] 20 mg PO DAILY 11/01/16 Losartan Potassium [Cozaar -] 50 mg PO DAILY 11/01/16 Omeprazole 40 mg PO DAILY 11/01/16 Simvastatin [Zocor -] 20 mg PO HS 11/01/16 Tamsulosin HCl [Flomax] 0.4 mg PO DAILY 11/01/16 Warfarin Sodium [Coumadin] 2 mg PO DAILY 11/01/16 Physical Exam Vital Signs: Vital Signs Temperature 98.6 F 06/13/17 17:16 Pulse Rate 57 L 06/13/17 17:16 Respiratory Rate 18 06/13/17 17:16 Blood Pressure 129/64 06/13/17 17:16 O2 Sat by Pulse Oximetry (%) 96 06/13/17 09:00 Labs: CBC, BMP 06/13/17 06:00 06/13/17 06:00 Assessment/Plan Vascular Surgery 87 year old male with HTN, HLD, Ventricular arrhythmia (S/P pacemaker on Coumadin), DVT in the past in left lower extremity presenting with left leg pain and knee swelling after potential trauma. Patient states that he had a some left knee bruising and swelling that he is unsure of any trauma to the area recently. He saw his PCP, Dr. Garrido, and there was no suspicion for anything serious. A few days after the visit, he had a small area of swelling and pain over his left tibia. He denies trauma to that area as well. Denies SOB , fevers, chills, nausea, vomiting, diarrhea, or other sick symptoms. US in ER shows left lower ext DVT PE Head - NC/at Lung - CTA Heart - RRR abd - soft,nt,nd ext - Left lower ext swelling Bruising on knee from trauma and distal gill A/P LLE DVT on coumadin. 1. INR is 2.1 2. Hold coumadin. 3. Will do IVC filter on tue. INR is coming down. Spoke to pt about plan and understands. Archie Parham DO
--- NOTE | 2017-06-13 20:50 | PN ---
Progress Note (short form) - Note Progress Note: Vascular Surgery Discussed case with Hem/onc Seems like pt is coming in for trauma to leg. US shows non occlusive thrombus. Prob just all chronic. Pt actually had DVT 3 years ago. So what we are seeing is just chronic changes. Cont coumadin. Will be on standby for ivc filter if needed. Archie Parham DO
--- NOTE | 2017-06-13 21:09 | CONSULT ---
Consult - text type - Consultation Consultation Note: Patient seen and examined 87 year old male with HTN, HLD, Ventricular arrhythmia (S/P pacemaker on Coumadin), DVT in the past in left lower extremity presenting with left leg bruising of the knee after potential trauma. Patient states that he had some left knee bruising and that he is unsure of any trauma to the area recently. He also has some pain over 1 spot over distal gill ? unsure of bruising - Past Medical History Cardiovascular: Yes: AFIB (paroxysmal), CAD, HTN, Hyperlipdemia Pulmonary: Yes: COPD Musculoskeletal: Yes: Chronic low back pain Additional Past Medical History: h/o DVT - Past Surgical History Past Surgical History: Yes: AICD, Joint Replacement - Smoking History Smoking history: Never smoked Home Medications - Allergies Allergies/Adverse Reactions: Allergies Allergy/AdvReac Type Severity Reaction Status Date / Time Penicillins Allergy Swelling Verified 06/12/17 08:14 IVP DYE Allergy Hives Uncoded 06/12/17 08:14 - Home Medications Home Medications: Ambulatory Orders Amlodipine Besylate [Norvasc -] 5 mg PO DAILY 11/01/16 Carvedilol [Coreg -] 25 mg PO DAILY 11/01/16 Ezetimibe [Zetia] 10 mg PO DAILY 11/01/16 Folic Acid 1 mg PO DAILY 11/01/16 Furosemide [Lasix -] 20 mg PO DAILY 11/01/16 Losartan Potassium [Cozaar -] 50 mg PO DAILY 11/01/16 Omeprazole 40 mg PO DAILY 11/01/16 Simvastatin [Zocor -] 20 mg PO HS 11/01/16 Tamsulosin HCl [Flomax] 0.4 mg PO DAILY 11/01/16 Warfarin Sodium [Coumadin] 2 mg PO DAILY 11/01/16 Active Medications Generic Name Dose Route Start Last Admin Trade Name Freq PRN Reason Stop Dose Admin Amlodipine Besylate 5 mg 06/13/17 10:00 06/15/17 09:17 Norvasc - PO 5 mg DAILY [facility] Administration Atorvastatin Calcium 10 mg 06/13/17 21:45 06/14/17 22:16 Lipitor - PO 10 mg HS ALMA Administration Carvedilol 25 mg 06/13/17 10:00 06/15/17 09:16 Coreg - PO 25 mg DAILY [facility] Administration Ezetimibe 10 mg 06/13/17 10:00 06/15/17 09:18 Zetia - PO 10 mg DAILY [facility] Administration Heparin Sodium (Porcine) 1,000 unit 06/13/17 14:02 Heparin - IVPUSH PRN PRN Heparin Heparin Sodium (Porcine) 5,000 unit 06/13/17 14:02 Heparin - IVPUSH PRN PRN Heparin Heparin Sodium/Dextrose 500 mls @ 16 mls/hr 06/13/17 14:15 06/15/17 09:28 Heparin Infusion - IVPB 9 mls/hr TITR ALMA Administration Protocol 800 UNITS/HR Losartan Potassium 50 mg 06/13/17 10:00 06/15/17 09:17 Cozaar - PO 50 mg DAILY [facility] Administration Alrex 0.2% 1 each 06/12/17 22:00 06/15/17 09:18 Ophthalmic OU 1 each Suspension-Non- BID [facility]MA Administration Formulary Med Ipratropium [place] 1 each 06/12/17 20:46 06/15/17 09:18 Nasal Solution 0.06% NR 1 each -Non-Formulary Med DAILY PRN Administration Amitiza 8mcg 1 each 06/13/17 10:00 06/15/17 09:19 Capsules- Non- PO Not Given Formulary Med DAILY [facility] Pantoprazole Sodium 40 mg 06/13/17 10:00 06/15/17 09:17 Protonix - PO 40 mg DAILY [facility] Administration Polyethylene Glycol 17 gm 06/14/17 10:00 06/15/17 09:30 Miralax (For Daily Use) - PO Not Given DAILY [facility] Tamsulosin HCl 0.4 mg 06/13/17 10:00 06/15/17 09:16 Flomax - PO 0.4 mg DAILY [facility] Administration Vital Signs: Last Vital Signs Temp Pulse Resp BP Pulse Ox 97.8 F 52 L 18 137/61 100 06/15/17 13:30 06/15/17 13:30 06/15/17 13:30 06/15/17 13:30 06/15/17 09:00 Cor: RSR, No murmurs, No gallops Lungs: Clear to P&A Abd: Soft, Normal bowel sounds, No organomegaly Ext:No significant edema A/P Well known to me from the office for chronic thrombocytopenia/HTN/CHF He now comes in with Lt. knee bruising after moving furniture also ?? ecchymosis over lt. gill Patient had h/o LLE DVT 3 yrs. 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
[2017-06-13] MEDS: ATORVASTATIN CA 10 MG TABLET (FP) PO SCH (22:45)
[2017-06-14 07:30] LABS: MCHC 33.6 g/dl (32.0-35.9); MEAN CELL VOLUME 89.2 fl (80-96); MEAN PLT VOLUME 8.2 fl (7.5-11.1); PLATELET COUNT 109 K/MM3 (134-434); RDW 15.6 % (11.9-15.9); WHITE BLOOD COUNT 6.5 K/mm3 (4.0-10.0)
[2017-06-14 07:56] LABS: INR 1.8 (0.82-1.09)
[2017-06-14 08:15] LABS: ALBUMIN 3.4 g/dl (3.4-5.0); ANION GAP 7 (8-16); BILIRUBIN,TOTAL 0.7 mg/dL (0.2-1.0); CALCIUM 8.9 mg/dL (8.5-10.1); CO2 26 mmol/L (21-32); CREATININE 1.3 mg/dL (0.7-1.3); GLUCOSE,RANDOM 88 mg/dL (74-106); SGOT/AST 20 U/L (15-37); SGPT/ALT 22 U/L (12-78); TOT PROT 6.3 g/dl (6.4-8.2)
[2017-06-14 08:16] LABS: ALK PHOS 72 U/L (45-117)
[2017-06-14] MEDS ORDERED: PT OWN MED DRAWER 7, Y5N ONE ×3 (09:13→20:43)
[2017-06-14] MEDS: EZETIMIBE 10 MG TABLET (FP) PO SCH (10:46)
[2017-06-14] MEDS: POLYETHYLENE GLYCOL 3350 119 GM BTL PO SCH (10:47)
[2017-06-14] MEDS: PANTOPRAZOLE 40 MG TABLET (FP) PO SCH (10:47)
[2017-06-14] MEDS: CARVEDILOL 25 MG TABLET (FP) PO SCH (10:47)
[2017-06-14] MEDS: amLODIPine BESYLATE 10 MG TABLET (FP) PO SCH (10:47)
[2017-06-14] MEDS: TAMSULOSIN HCL 0.4 MG CAP.ER.24H (FP) PO SCH (10:47)
[2017-06-14] MEDS: LOSARTAN POTASSIUM 50 MG TABLET (FP) PO SCH (10:48)
[2017-06-14] MEDS: IPRATROPIUM BROMIDE 0.06% NR PRN (10:48)
[2017-06-14] MEDS: AMITIZA 8 MCG PO SCH (10:49)
[2017-06-14] MEDS: ALREX OU SCH ×2 (10:49→22:17)
--- NOTE | 2017-06-14 11:12 | PN ---
Progress Note, Physician Chief Complaint: pt examined feels well no complaints - Current Medication List Current Medications: Active Medications Amlodipine Besylate (Norvasc -) 5 mg PO DAILY [facility] Last Admin: 06/14/17 10:47 Dose: 5 mg Atorvastatin Calcium (Lipitor -) 10 mg PO HS [facility] Last Admin: 06/13/17 22:45 Dose: 10 mg Carvedilol (Coreg -) 25 mg PO DAILY [facility] Last Admin: 06/14/17 10:47 Dose: 25 mg Ezetimibe (Zetia -) 10 mg PO DAILY [facility] Last Admin: 06/14/17 10:46 Dose: 10 mg Heparin Sodium (Porcine) (Heparin -) 1,000 unit IVPUSH PRN PRN PRN Reason: Heparin Heparin Sodium (Porcine) (Heparin -) 5,000 unit IVPUSH PRN PRN PRN Reason: Heparin Heparin Sodium/Dextrose (Heparin Infusion -) 500 mls @ 16 mls/hr IVPB TITR ALMA ; 800 UNITS/HR PRN Reason: Protocol Last Titration: 06/14/17 01:50 Dose: 650 units/hr Losartan Potassium (Cozaar -) 50 mg PO DAILY [facility] Last Admin: 06/14/17 10:48 Dose: 50 mg Alrex 0.2% Ophthalmic Suspension-Non- Formulary Med 1 each OU BID [facility] Last Admin: 06/14/17 10:49 Dose: 1 each Ipratropium [place] Nasal Solution 0.06% -Non-Formulary Med 1 each NR DAILY PRN Last Admin: 06/14/17 10:48 Dose: 1 each Amitiza 8mcg Capsules- Non- Formulary Med 1 each PO DAILY [facility] Last Admin: 06/14/17 10:49 Dose: Not Given Pantoprazole Sodium (Protonix -) 40 mg PO DAILY [facility] Last Admin: 06/14/17 10:47 Dose: 40 mg Polyethylene Glycol (Miralax (For Daily Use) -) 17 gm PO DAILY [facility] Last Admin: 06/14/17 10:47 Dose: Not Given Tamsulosin HCl (Flomax -) 0.4 mg PO DAILY [facility] Last Admin: 06/14/17 10:47 Dose: 0.4 mg Warfarin Sodium (Coumadin -) 5 mg PO DAILY@1800 [facility] - Objective Vital Signs: Vital Signs Temperature 98.8 F 06/14/17 09:00 Pulse Rate 68 06/14/17 09:00 Respiratory Rate 18 06/14/17 09:00 Blood Pressure 137/85 06/14/17 09:00 O2 Sat by Pulse Oximetry (%) 98 06/14/17 09:00 Constitutional: Yes: No Distress Cardiovascular: Yes: Regular Rate and Rhythm Respiratory: Yes: CTA Bilaterally Gastrointestinal: Yes: Normal Bowel Sounds, Soft. No: Distention, Tenderness Extremities: Yes: Other (decreased ecchymosis to left knee, decreased swelling to distal left leg) Edema: No Psychiatric: Yes: Alert, Oriented Labs: CBC, BMP 06/14/17 06:00 06/14/17 06:00 INR, PTT INR 1.80 (0.82-1.09) H 06/14/17 06:00 Problem List - Problems (1) DVT (deep venous thrombosis) Code(s): I82.409 - ACUTE EMBOLISM AND THOMBOS UNSP DEEP VN UNSP LOWER EXTREMITY Qualifiers: DVT location: lower extremity Laterality: left (2) Paroxysmal a-fib Code(s): I48.0 - PAROXYSMAL ATRIAL FIBRILLATION (3) HTN (hypertension) Code(s): I10 - ESSENTIAL (PRIMARY) HYPERTENSION (4) CHF (congestive heart failure) Code(s): I50.9 - HEART FAILURE, UNSPECIFIED Assessment/Plan PLAN Appreciate Vascular and Hematology evaluation Likely old DVT will resume Coumadin continue Heparin drip as INR is subtherapeutic CT chest done this AM, results pending continue with meds ice packs to distal leg hematoma-- trauma related check INR in AM
[2017-06-14] MEDS ORDERED: WARFARIN NA 5 MG TABLET (UD) PO ONE ×2 (13:15)
[2017-06-14] MEDS ORDERED: WARFARIN NA 5 MG TABLET (UD) PO SCH (18:00)
[2017-06-14] MEDS: HEPARIN INFUSION - 500 ML IVPB SCH (18:14)
[2017-06-14] MEDS: ATORVASTATIN CA 10 MG TABLET (FP) PO SCH (22:16)
[2017-06-15 07:28] LABS: MCH 29.9 pg (25.7-33.7); MCHC 33.7 g/dl (32.0-35.9); MEAN CELL VOLUME 88.6 fl (80-96); MEAN PLT VOLUME 7.8 fl (7.5-11.1); PLATELET COUNT 129 K/MM3 (134-434); RDW 15.8 % (11.9-15.9); WHITE BLOOD COUNT 6.6 K/mm3 (4.0-10.0)
[2017-06-15 08:10] LABS: INR 1.4 (0.82-1.09); PROTHROMBIN TIME (PATIENT) 15.5 SEC (9.98-11.88)
[2017-06-15] MEDS ORDERED: PT OWN MED DRAWER 7, Y5N ONE ×2 (09:12→20:43)
[2017-06-15] MEDS: CARVEDILOL 25 MG TABLET (FP) PO SCH (09:16)
[2017-06-15] MEDS: TAMSULOSIN HCL 0.4 MG CAP.ER.24H (FP) PO SCH (09:16)
[2017-06-15] MEDS: PANTOPRAZOLE 40 MG TABLET (FP) PO SCH (09:17)
[2017-06-15] MEDS: LOSARTAN POTASSIUM 50 MG TABLET (FP) PO SCH (09:17)
[2017-06-15] MEDS: amLODIPine BESYLATE 10 MG TABLET (FP) PO SCH (09:17)
[2017-06-15] MEDS: ALREX OU SCH ×2 (09:18→21:56)
[2017-06-15] MEDS: EZETIMIBE 10 MG TABLET (FP) PO SCH (09:18)
[2017-06-15] MEDS: IPRATROPIUM BROMIDE 0.06% NR PRN (09:18)
[2017-06-15] MEDS: AMITIZA 8 MCG PO SCH (09:19)
[2017-06-15] MEDS: HEPARIN INFUSION - 500 ML IVPB SCH (09:28)
[2017-06-15] MEDS: POLYETHYLENE GLYCOL 3350 119 GM BTL PO SCH (09:30)
--- NOTE | 2017-06-15 10:21 | PN ---
Progress Note, Physician Chief Complaint: pt examined feels well no complaints - Current Medication List Current Medications: Active Medications Amlodipine Besylate (Norvasc -) 5 mg PO DAILY [facility] Last Admin: 06/15/17 09:17 Dose: 5 mg Atorvastatin Calcium (Lipitor -) 10 mg PO HS [facility] Last Admin: 06/14/17 22:16 Dose: 10 mg Carvedilol (Coreg -) 25 mg PO DAILY [facility] Last Admin: 06/15/17 09:16 Dose: 25 mg Ezetimibe (Zetia -) 10 mg PO DAILY [facility] Last Admin: 06/15/17 09:18 Dose: 10 mg Heparin Sodium (Porcine) (Heparin -) 1,000 unit IVPUSH PRN PRN PRN Reason: Heparin Heparin Sodium (Porcine) (Heparin -) 5,000 unit IVPUSH PRN PRN PRN Reason: Heparin Heparin Sodium/Dextrose (Heparin Infusion -) 500 mls @ 16 mls/hr IVPB TITR [facility]MA ; 800 UNITS/HR PRN Reason: Protocol Last Admin: 06/15/17 09:28 Dose: 9 mls/hr Losartan Potassium (Cozaar -) 50 mg PO DAILY [facility] Last Admin: 06/15/17 09:17 Dose: 50 mg Alrex 0.2% Ophthalmic Suspension-Non- Formulary Med 1 each OU BID [facility] Last Admin: 06/15/17 09:18 Dose: 1 each Ipratropium [place] Nasal Solution 0.06% -Non-Formulary Med 1 each NR DAILY PRN Last Admin: 06/15/17 09:18 Dose: 1 each Amitiza 8mcg Capsules- Non- Formulary Med 1 each PO DAILY [facility] Last Admin: 06/15/17 09:19 Dose: Not Given Pantoprazole Sodium (Protonix -) 40 mg PO DAILY [facility] Last Admin: 06/15/17 09:17 Dose: 40 mg Polyethylene Glycol (Miralax (For Daily Use) -) 17 gm PO DAILY [facility] Last Admin: 06/15/17 09:30 Dose: Not Given Tamsulosin HCl (Flomax -) 0.4 mg PO DAILY [facility] Last Admin: 06/15/17 09:16 Dose: 0.4 mg - Objective Vital Signs: Vital Signs Temperature 98.6 F 06/14/17 18:42 Pulse Rate 57 L 06/14/17 18:42 Respiratory Rate 18 06/14/17 18:42 Blood Pressure 123/65 06/14/17 18:42 O2 Sat by Pulse Oximetry (%) 98 06/14/17 09:00 Constitutional: Yes: No Distress Cardiovascular: Yes: Regular Rate and Rhythm Respiratory: Yes: CTA Bilaterally Gastrointestinal: Yes: Normal Bowel Sounds, Soft. No: Distention, Tenderness Edema: No Labs: CBC, BMP 06/15/17 06:00 06/14/17 06:00 INR, PTT INR 1.40 (0.82-1.09) H 06/15/17 07:00 Problem List - Problems (1) DVT (deep venous thrombosis) Code(s): I82.409 - ACUTE EMBOLISM AND THOMBOS UNSP DEEP VN UNSP LOWER EXTREMITY Qualifiers: DVT location: lower extremity Laterality: left (2) Paroxysmal a-fib Code(s): I48.0 - PAROXYSMAL ATRIAL FIBRILLATION (3) HTN (hypertension) Code(s): I10 - ESSENTIAL (PRIMARY) HYPERTENSION (4) CHF (congestive heart failure) Code(s): I50.9 - HEART FAILURE, UNSPECIFIED Assessment/Plan PLAN Appreciate Vascular and Hematology evaluation Likely old DVT Coumadin-- give 7.5 mg tonight continue Heparin drip as INR is subtherapeutic CT chest -- lung opacity in left lung-- will need PET scan as outpt continue with meds ice packs to distal leg hematoma-- trauma related check INR in AM physical therapy eval for ambulation
[2017-06-15] MEDS ORDERED: WARFARIN NA 7.5 MG TABLET (FP) PO ONE (18:00)
[2017-06-15] MEDS: ATORVASTATIN CA 10 MG TABLET (FP) PO SCH (21:56)
[2017-06-16 07:36] LABS: MCH 30.1 pg (25.7-33.7); MCHC 33.9 g/dl (32.0-35.9); MEAN CELL VOLUME 88.8 fl (80-96); MEAN PLT VOLUME 8.2 fl (7.5-11.1); PLATELET COUNT 124 K/MM3 (134-434); RDW 15.6 % (11.9-15.9); WHITE BLOOD COUNT 5.5 K/mm3 (4.0-10.0)
[2017-06-16] MEDS: HEPARIN INFUSION - 500 ML IVPB SCH ×2 (07:55→18:54)
[2017-06-16 08:09] LABS: INR 1.51 (0.82-1.09); PROTHROMBIN TIME (PATIENT) 16.8 SEC (9.98-11.88)
[2017-06-16] MEDS ORDERED: PT OWN MED DRAWER 7, Y5N ONE (09:54)
[2017-06-16] MEDS: CARVEDILOL 25 MG TABLET (FP) PO SCH (09:56)
[2017-06-16] MEDS: PANTOPRAZOLE 40 MG TABLET (FP) PO SCH (09:57)
[2017-06-16] MEDS: TAMSULOSIN HCL 0.4 MG CAP.ER.24H (FP) PO SCH (09:57)
[2017-06-16] MEDS: amLODIPine BESYLATE 10 MG TABLET (FP) PO SCH (09:57)
[2017-06-16] MEDS: LOSARTAN POTASSIUM 50 MG TABLET (FP) PO SCH (09:58)
[2017-06-16] MEDS: POLYETHYLENE GLYCOL 3350 119 GM BTL PO SCH (10:00)
[2017-06-16] MEDS: IPRATROPIUM BROMIDE 0.06% NR PRN ×2 (10:00→21:09)
[2017-06-16] MEDS: AMITIZA 8 MCG PO SCH (10:00)
[2017-06-16] MEDS: ALREX OU SCH ×2 (10:01→21:10)
[2017-06-16] MEDS: EZETIMIBE 10 MG TABLET (FP) PO SCH (10:02)
--- NOTE | 2017-06-16 10:21 | PN ---
Progress Note, Physician Chief Complaint: pt examined feels well no complaints - Current Medication List Current Medications: Active Medications Amlodipine Besylate (Norvasc -) 5 mg PO DAILY [facility] Last Admin: 06/16/17 09:57 Dose: 5 mg Atorvastatin Calcium (Lipitor -) 10 mg PO HS [facility] Last Admin: 06/15/17 21:56 Dose: 10 mg Carvedilol (Coreg -) 25 mg PO DAILY [facility] Last Admin: 06/16/17 09:56 Dose: 25 mg Ezetimibe (Zetia -) 10 mg PO DAILY [facility] Last Admin: 06/16/17 10:02 Dose: 10 mg Heparin Sodium (Porcine) (Heparin -) 1,000 unit IVPUSH PRN PRN PRN Reason: Heparin Heparin Sodium (Porcine) (Heparin -) 5,000 unit IVPUSH PRN PRN PRN Reason: Heparin Heparin Sodium/Dextrose (Heparin Infusion -) 500 mls @ 16 mls/hr IVPB TITR ALMA ; 800 UNITS/HR PRN Reason: Protocol Last Titration: 06/16/17 10:03 Dose: 450 units/hr Losartan Potassium (Cozaar -) 50 mg PO DAILY [facility] Last Admin: 06/16/17 09:58 Dose: 50 mg Alrex 0.2% Ophthalmic Suspension-Non- Formulary Med 1 each OU BID [facility] Last Admin: 06/16/17 10:01 Dose: 1 each Ipratropium [place] Nasal Solution 0.06% -Non-Formulary Med 1 each NR DAILY PRN Last Admin: 06/16/17 10:00 Dose: 1 each Amitiza 8mcg Capsules- Non- Formulary Med 1 each PO DAILY [facility] Last Admin: 06/16/17 10:00 Dose: Not Given Pantoprazole Sodium (Protonix -) 40 mg PO DAILY [facility] Last Admin: 06/16/17 09:57 Dose: 40 mg Polyethylene Glycol (Miralax (For Daily Use) -) 17 gm PO DAILY [facility] Last Admin: 06/16/17 10:00 Dose: Not Given Tamsulosin HCl (Flomax -) 0.4 mg PO DAILY [facility] Last Admin: 06/16/17 09:57 Dose: 0.4 mg - Objective Vital Signs: Vital Signs Temperature 98.1 F 06/16/17 09:43 Pulse Rate 61 06/16/17 09:43 Respiratory Rate 18 06/16/17 09:43 Blood Pressure 135/71 06/16/17 09:43 O2 Sat by Pulse Oximetry (%) 99 06/15/17 21:00 Constitutional: Yes: No Distress, Calm Cardiovascular: Yes: Regular Rate and Rhythm Respiratory: Yes: CTA Bilaterally Gastrointestinal: Yes: Normal Bowel Sounds, Soft. No: Distention, Tenderness Edema: No Labs: CBC, BMP 06/16/17 06:50 06/14/17 06:00 INR, PTT INR 1.51 (0.82-1.09) H 06/16/17 06:50 Problem List - Problems (1) DVT (deep venous thrombosis) Code(s): I82.409 - ACUTE EMBOLISM AND THOMBOS UNSP DEEP VN UNSP LOWER EXTREMITY Qualifiers: DVT location: lower extremity Laterality: left (2) Paroxysmal a-fib Code(s): I48.0 - PAROXYSMAL ATRIAL FIBRILLATION (3) HTN (hypertension) Code(s): I10 - ESSENTIAL (PRIMARY) HYPERTENSION (4) CHF (congestive heart failure) Code(s): I50.9 - HEART FAILURE, UNSPECIFIED Assessment/Plan PLAN Appreciate Vascular and Hematology evaluation 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
[2017-06-16] MEDS ORDERED: WARFARIN NA 7.5 MG TABLET (FP) PO ONE (18:00)
[2017-06-16] MEDS: ATORVASTATIN CA 10 MG TABLET (FP) PO SCH (21:09)
[2017-06-17 07:24] LABS: MCH 29.8 pg (25.7-33.7); MCHC 33.6 g/dl (32.0-35.9); MEAN CELL VOLUME 88.8 fl (80-96); MEAN PLT VOLUME 7.9 fl (7.5-11.1); PLATELET COUNT 131 K/MM3 (134-434); RDW 15.7 % (11.9-15.9)
[2017-06-17 07:36] LABS: INR 2.03 (0.82-1.09); PROTHROMBIN TIME (PATIENT) 22.7 SEC (9.98-11.88)
[2017-06-17 09:07] VITALS: BP 155/77; PULSE 62; TEMP 97.1
--- NOTE | 2017-06-17 09:57 | DS ---
Physical Examination Vital Signs: Vital Signs Temperature 97.1 F L 06/17/17 09:06 Pulse Rate 62 06/17/17 09:06 Respiratory Rate 16 06/17/17 09:06 Blood Pressure 155/77 06/17/17 09:06 O2 Sat by Pulse Oximetry (%) 97 06/16/17 20:21 Findings/Remarks: pt feels well chart reviewed no complains Constitutional: Yes: No Distress, Calm Eyes: Yes: Conjunctiva Clear Neck: Yes: Supple Cardiovascular: Yes: Regular Rate and Rhythm Respiratory: Yes: CTA Bilaterally Gastrointestinal: Yes: Normal Bowel Sounds, Soft Edema: LLE: Trace, RLE: Trace Neurological: Yes: Alert Psychiatric: Yes: Alert Labs: CBC, BMP 06/17/17 06:00 06/14/17 06:00 Discharge Summary Reason For Visit: DEEP VEIN THROMBOSIS Current Active Problems CHF (congestive heart failure) (Acute) DVT (deep venous thrombosis) (Acute) HTN (hypertension) (Acute) Paroxysmal a-fib (Acute) Hospital Course: 87 year old male with HTN, HLD, Ventricular arrhythmia (S/P pacemaker on Coumadin), DVT in the past in left lower extremity presenting with left leg pain and knee swelling after potential trauma. Patient states that he had a some left knee bruising and swelling that he is unsure of any trauma to the area recently. He saw his PCP, Dr. Garrido, and there was no suspicion for anything serious. A few days after the visit, he had a small area of swelling and pain over his left tibia. He denies trauma to that area as well. Denies SOB , fevers, chills, nausea, vomiting, diarrhea, or other sick symptoms. work up showed chronic dvt hematology followed now stable for d/c pet scan as out pt for left lung opacity-- pt already has prescription -- given by Dr. Luciano. meds reviewed/ concilled discussed with Dr. Swain also. Also discussed with nursing staff f/u in office next week . pt in agreement d/c time 35 min in examining/ documenting and coordating care. Condition: Stable - Instructions Referrals: Hema Garrido MD [Primary Care Provider] - Disposition: HOME - Home Medications Comprehensive Discharge Medication List: Ambulatory Orders Amlodipine Besylate [Norvasc -] 5 mg PO DAILY 11/01/16 Carvedilol [Coreg -] 25 mg PO DAILY 11/01/16 Ezetimibe [Zetia] 10 mg PO DAILY 11/01/16 Folic Acid 1 mg PO DAILY 11/01/16 Furosemide [Lasix -] 20 mg PO DAILY 11/01/16 Losartan Potassium [Cozaar -] 50 mg PO DAILY 11/01/16 Omeprazole 40 mg PO DAILY 11/01/16 Simvastatin [Zocor -] 20 mg PO HS 11/01/16 Tamsulosin HCl [Flomax -] 0.4 mg PO DAILY 11/01/16 Warfarin Sodium [Coumadin] 2 mg PO DAILY 11/01/16 Polyethylene Glycol 3350 [Miralax 119 gm Btl -] 17 gm PO DAILY bottle 06/17/17
[2017-06-17] MEDS: CARVEDILOL 25 MG TABLET (FP) PO SCH (10:05)
[2017-06-17] MEDS: EZETIMIBE 10 MG TABLET (FP) PO SCH (10:05)
[2017-06-17] MEDS: LOSARTAN POTASSIUM 50 MG TABLET (FP) PO SCH (10:05)
[2017-06-17] MEDS: amLODIPine BESYLATE 10 MG TABLET (FP) PO SCH (10:06)
[2017-06-17] MEDS: TAMSULOSIN HCL 0.4 MG CAP.ER.24H (FP) PO SCH (10:06)
[2017-06-17] MEDS: PANTOPRAZOLE 40 MG TABLET (FP) PO SCH (10:06)
[2017-06-17] MEDS: ALREX OU SCH (10:07)
[2017-06-17] MEDS: AMITIZA 8 MCG PO SCH (10:08)
[2017-06-17] MEDS: POLYETHYLENE GLYCOL 3350 119 GM BTL PO SCH (10:09)
== END 2017-06-17 10:40 | disposition home or self-care (01) | DRG 300 ==
LOC: JER 08:11 → JERBED 13:06 → J7W 14:15 → OBSVTOIN 17:48
PROVIDERS: ADMIT Internal Medicine; ATTEND Internal Medicine
DX: I82.592 Chronic embolism and thrombosis of other specified deep vein of left lower extremity (principal); I50.32 Chronic diastolic (congestive) heart failure; S80.12XA Contusion of left lower leg, initial encounter; E78.5 Hyperlipidemia, unspecified; Z95.0 Presence of cardiac pacemaker; Z88.0 Allergy status to penicillin; I48.0 Paroxysmal atrial fibrillation; I11.0 Hypertensive heart disease with heart failure; M54.5 Low back pain; D69.6 Thrombocytopenia, unspecified; I25.2 Old myocardial infarction; X58.XXXA Exposure to other specified factors, initial encounter; Y93.89 Activity, other specified; Y92.89 Other specified places as the place of occurrence of the external cause; Y99.8 Other external cause status; Z79.01 Long term (current) use of anticoagulants
CPT/HCPCS: 36415; 71020-TC; 71250-TC; 80048; 80053; 85025; 85027; 85610; 85730; 93005; 93010; 93971-TC; 97116-GP; 97161-GP; 99283-25; G0378; J1644

== ENCOUNTER 2018-07-13 13:31 | Emergency (ER) | payer OTHER, BC ==
[2018-07-13 13:47] VITALS: BP 132/73; PULSE 85; TEMP 97.4; BMI 29.0
--- NOTE | 2018-07-13 13:53 | PDOC ---
History of Present Illness - General Chief Complaint: Lightheaded Stated Complaint: DIZZINESS,WEAKNESS Time Seen by Provider: 07/13/18 13:52 - History of Present Illness Initial Comments: 07/13/18 13:54 Mr. Banks is an 88 yo male w/ pmh of HTN, HLD, BPH, Ventricular arrhythmia (s/ p pacemaker, on coumadin), DVT, who presents for evaluation of episode of right arm shaking this morning after taking his medications. Patient reports he additionally had some diarrhea yesterday and today for which he took immodium. No other complaints at this today. Patient specifically denies any dizziness upon this provider's examination. The patient denies chest pain, shortness of breath, headache and dizziness. Denies fever, chills, nausea, vomit, and constipation. Denies dysuria, frequency , urgency and hematuria. Allergies: Penicillins Past History - Past Medical History Allergies/Adverse Reactions: Allergies Allergy/AdvReac Type Severity Reaction Status Date / Time Penicillins Allergy Swelling Verified 07/13/18 13:47 IVP DYE Allergy Hives Uncoded 07/13/18 13:47 Home Medications: Ambulatory Orders Amlodipine Besylate [Norvasc -] 5 mg PO DAILY 11/01/16 Carvedilol [Coreg -] 25 mg PO DAILY 11/01/16 Ezetimibe [Zetia] 10 mg PO DAILY 11/01/16 Folic Acid 1 mg PO DAILY 11/01/16 Furosemide [Lasix -] 20 mg PO DAILY 11/01/16 Losartan Potassium [Cozaar -] 50 mg PO DAILY 11/01/16 Omeprazole 40 mg PO DAILY 11/01/16 Simvastatin [Zocor -] 20 mg PO HS 11/01/16 Tamsulosin HCl [Flomax -] 0.4 mg PO DAILY 11/01/16 Warfarin Sodium [Coumadin] 2 mg PO DAILY 11/01/16 Polyethylene Glycol 3350 [Miralax 119 gm Btl -] 17 gm PO DAILY bottle 06/17/17 Docusate Sodium [Colace] 100 mg PO DAILY 30 Days #30 capsule 07/13/18 Anemia: No Asthma: No Cancer: No Cardiac Disorders: Yes ([place],VENTRICULAR ARRYTHMIA) CVA: No COPD: No CHF: No Dementia: No Diabetes: No GI Disorders: Yes (ABDOMINAL PAIN,DIVERTICULITIS,DIARRHEA) Disorders: No HTN: Yes Hypercholesterolemia: Yes Liver Disease: No Seizures: No Thyroid Disease: No - Surgical History Appendectomy: Yes 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) Cholecystectomy: Yes Lung Surgery: No Neurologic Surgery: No Orthopedic Surgery: Yes (H/O RIGHT FX HIP WITH HARDWARE) - Immunization History Immunization Up to Date: Yes - Suicide/Smoking/Psychosocial Hx Smoking Status: No Smoking History: Never smoked Have you smoked in the past 12 months: No Number of Cigarettes Smoked Daily: 0 If you are a former smoker, when did you quit?: 40YRS AGO Information on smoking cessation initiated: No Hx Alcohol Use: No Drug/Substance Use Hx: No Substance Use Type: None Hx Substance Use Treatment: No Review of Systems - Review of Systems Comments:: 07/13/18 14:28 GENERAL/CONSTITUTIONAL: +Shaking as described. No fever or chills. No weakness. HEAD, EYES, EARS, NOSE AND THROAT: No change in vision. No ear pain or discharge. No sore throat. CARDIOVASCULAR: No chest pain or shortness of breath RESPIRATORY: No cough, wheezing, or hemoptysis. GASTROINTESTINAL: No nausea, vomiting, diarrhea or constipation. GENITOURINARY: No dysuria, frequency, or change in urination. MUSCULOSKELETAL: No joint or muscle swelling or pain. No neck or back pain. SKIN: No rash NEUROLOGIC: No headache, vertigo, loss of consciousness, or change in strength/ sensation. ENDOCRINE: No increased thirst. No abnormal weight change HEMATOLOGIC/LYMPHATIC: No anemia, easy bleeding, or history of blood clots. ALLERGIC/IMMUNOLOGIC: No hives or skin allergy. *Physical Exam - Vital Signs Last Vital Signs Temp Pulse Resp BP Pulse Ox 97.4 F L 85 16 132/73 100 07/13/18 13:44 07/13/18 13:44 07/13/18 13:44 07/13/18 13:44 07/13/18 13:44 - Physical Exam Comments: 07/13/18 14:28 GENERAL: Awake, alert, and fully oriented, in no acute distress HEAD: No signs of trauma, normocephalic, atraumatic EYES: PERRLA, EOMI, sclera anicteric, conjunctiva clear ENT: Auricles normal inspection, hearing grossly normal, nares patent, oropharynx clear without exudates. Moist mucosa NECK: Normal ROM, supple, no lymphadenopathy, JVD, or masses LUNGS: No distress, speaks full sentences, clear to auscultation bilaterally HEART: Regular rate and rhythm, normal S1 and S2, no murmurs, rubs or gallops, peripheral pulses normal and equal bilaterally. ABDOMEN: Soft, nontender, normoactive bowel sounds. No guarding, no rebound. No masses EXTREMITIES: +Minor self limited shaking of RUE noted. Patient able to stop at will. Otherwise normal inspection, normal range of motion, no edema. No clubbing or cyanosis. NEUROLOGICAL: Cranial nerves II through XII grossly intact. Normal speech, normal gait, no focal sensorimotor deficits SKIN: Warm, Dry, normal turgor, no rashes or lesions noted. ED Treatment Course - LABORATORY CBC & Chemistry Diagram: 07/13/18 15:00 07/13/18 15:00 Medical Decision Making - Medical Decision Making 07/13/18 15:30 Mr. Banks is an 88 yo male w/ pmh as described who presents for evaluation of shaking episode. Patient currently alert and oriented, will evaluate for acute process w/ EKG, labs. EKG regular rate, regular rhythm, leftward axis, normal intervals, no ST elevations or depressions. Inverted T-waves noted in V1-V3 unchanged from previous EKG in 2017. RBB block likewise unchanged from previous. Labs currently pending. 07/13/18 16:50 Patient labs grossly wnl as below. Patient also reporting he has been taking a lot of miralax and has been worried about upcoming jury duty; suspect miralax and anxiety may have been contributing to symptoms. INR w/in desired range. No concern for acute process at this time. Will d/c to home w/ colace Rx and have patient f/u w/ PCP tomorrow. Patient verbalized understanding and agreement and will comply. Discharging. Laboratory Results - last 24 hr 07/13/18 07/13/18 07/13/18 14:46 15:00 15:00 WBC 8.4 RBC 4.27 Hgb 13.7 Hct 40.0 MCV 93.6 MCH 32.1 MCHC 34.3 RDW 16.9 H Plt Count 175 MPV 7.4 L Absolute Neuts (auto) 5.4 Neutrophils % 63.6 D Lymphocytes % 22.3 D Monocytes % 10.5 H Eosinophils % 3.5 Basophils % 0.1 Nucleated RBC % 0 PT with INR 23.10 H INR 2.04 H Sodium Potassium Chloride Carbon Dioxide Anion Gap BUN Creatinine Creat Clearance w eGFR Random Glucose Calcium Total Bilirubin AST ALT Alkaline Phosphatase Total Protein Albumin Urine Color Straw Urine Appearance Clear Urine pH 7.0 D Ur Specific [place] 1.006 Urine Protein Negative Urine Glucose (UA) Negative Urine Ketones Negative Urine Blood Negative Urine Nitrite Negative Urine Bilirubin Negative Urine Urobilinogen Negative Ur Leukocyte Esterase Negative 07/13/18 15:00 WBC RBC Hgb Hct MCV MCH MCHC RDW Plt Count MPV Absolute Neuts (auto) Neutrophils % Lymphocytes % Monocytes % Eosinophils % Basophils % Nucleated RBC % PT with INR INR Sodium 139 Potassium 4.6 Chloride 107 Carbon Dioxide 26 Anion Gap 6 L BUN 26 H Creatinine 2.0 H Creat Clearance w eGFR 31.69 Random Glucose 117 H Calcium 8.7 Total Bilirubin 0.6 AST 29 ALT 40 Alkaline Phosphatase 77 Total Protein 6.9 Albumin 3.9 Urine Color Urine Appearance Urine pH Ur Specific [place] Urine Protein Urine Glucose (UA) Urine Ketones Urine Blood Urine Nitrite Urine Bilirubin Urine Urobilinogen Ur Leukocyte Esterase *DC/Admit/Observation/Transfer Diagnosis at time of Disposition: Shaking Constipation Qualifiers: Constipation type: unspecified constipation type Qualified Code(s): K59.00 - Constipation, unspecified - Discharge Dispostion Disposition: HOME - Referrals Referrals: Hema Garrido MD [Primary Care Provider] - - Patient Instructions Printed Discharge Instructions: DI for Constipation Additional Instructions: You were evaluated today in the ER for your constipation and shaking. No concerning findings were found at this time. Your INR was 2.04 and your other labs were grossly within normal limits. A prescription has been sent to your pharmacy for colace. Please take all medications as proscribed. Follow-up tomorrow with primary care provider for further evaluation. Return to ER if any fever, chills, increase in shaking, or other concerning symptoms. - Post Discharge Activity
[2018-07-13 15:08] LABS: URINE APPEARANCE CLEAR; URINE BILIRUBIN NEGATIVE (<2.0 mg/dL); URINE COLOR STRAW; URINE GLUCOSE (UA) NEGATIVE (NEGATIVE); URINE KETONE NEGATIVE (NEGATIVE); URINE LEUK ESTERASE NEGATIVE (NEGATIVE); URINE NITRITE NEGATIVE (NEGATIVE); URINE PROTEIN NEGATIVE (NEGATIVE); URINE UROBILINOGEN NEGATIVE mg/dL (0.2-1.0)
[2018-07-13 15:47] LABS: BASO % 0.1 % (0-2.0); EOS % 3.5 % (0-4.5); HEMOGLOBIN 13.7 GM/dL (11.7-16.9); LYMPH % 22.3 % (8-40); MCH 32.1 pg (25.7-33.7); MCHC 34.3 g/dl (32.0-35.9); MEAN CELL VOLUME 93.6 fl (80-96); MEAN PLT VOLUME 7.4 fl (7.5-11.1); MONO % 10.5 % (3.8-10.2); NEUT % 63.6 % (42.8-82.8); PLATELET COUNT 175 K/MM3 (134-434); RBC 4.27 M/mm3 (4.00-5.60); RDW 16.9 % (11.9-15.9); WHITE BLOOD COUNT 8.4 K/mm3 (4.0-10.0)
[2018-07-13 16:11] LABS: ALBUMIN 3.9 g/dl (3.4-5.0); ALK PHOS 77 U/L (45-117); ANION GAP 6 MMOL/L (8-16); BILIRUBIN,TOTAL 0.6 mg/dL (0.2-1); BLOOD UREA NITROGEN 26 mg/dL (7-18); CALCIUM 8.7 mg/dL (8.5-10.1); CHLORIDE 107 mmol/L (98-107); CO2 26 mmol/L (21-32); GLUCOSE,RANDOM 117 mg/dL (74-106); POTASSIUM 4.6 mmol/L (3.5-5.1); SGOT/AST 29 U/L (15-37); SGPT/ALT 40 U/L (13-61); SODIUM 139 mmol/L (136-145); TOT PROT 6.9 g/dl (6.4-8.2)
[2018-07-13 16:12] LABS: INR 2.04 (0.83-1.09); PROTHROMBIN TIME (PATIENT) 23.1 SEC (9.7-13.0)
--- NOTE | 2018-07-13 17:18 | PDOC ---
Attending Attestation - Resident Resident Name: Jer Bello - ED Attending Attestation I have performed the following: I have examined & evaluated the patient, The case was reviewed & discussed with the resident, I agree w/resident's findings & plan - HPI HPI: 07/13/18 17:13 Mr. Banks is an 88 yo male w/ pmh of HTN, HLD, BPH, Ventricular arrhythmia (s/ p pacemaker, on coumadin), DVT, who presents for evaluation of episode of right arm shaking this morning after taking his medications. +loose stools, nonbloody x yesterday, a/w gen abd pain. taking miralax and imodium for his constipation. no f/c malaise, weakness or paresthesia, cp or sob or AMS. - Physicial Exam PE: 07/13/18 17:13 NAD, well appearing, MMM, nl conjunctiva, anicteric; neck supple. lungs clear, RRR, abdomen soft nontender. MIJARES x4, no focal neuro deficits. No peripheral edema. normal color for ethnicity, WWP. - Medical Decision Making 07/13/18 17:13 Mr. Banks is an 88 yo male w/ pmh of HTN, HLD, BPH, Ventricular arrhythmia (s/ p pacemaker, on coumadin), DVT, who presents for evaluation of episode of right arm shaking this morning after taking his medications. DDx UTI, electrolyte abnormalities, tremor. constipation, hepatitis, pancreatitis, GERD, PUD. med side effect. vitals wnl. no signs of infection, normal temp labs and lytes wnl, cr at baseline. UA neg for infection at baseline status, no e/o seizure or AMS/ INR therapeutic. eKG with old TW abnormalities, sinus rhythm and left axis deviation without ischemic changes or ST segment derangements DC with high fiber diet, colace and stool softener effect. hold off on double imodium and miralax as the side effect of AP and loose stools evident. return precautions given. hydration and supportive care, regular BM regimen discussed. discharge in stable condition. 07/13/18 17:16 07/13/18 17:17 07/13/18 17:18
--- NOTE | 2018-07-14 08:05 | EKG ---
Test Reason : Blood Pressure : / mmHG Vent. Rate : 079 BPM Atrial Rate : 079 BPM P-R Int : 210 ms QRS Dur : 140 ms QT Int : 432 ms P-R-T Axes : 012 -77 028 degrees QTc Int : 495 ms POOR DATA QUALITY, INTERPRETATION MAY BE ADVERSELY AFFECTED SINUS RHYTHM WITH 1ST DEGREE A-V BLOCK LEFT AXIS DEVIATION RIGHT BUNDLE BRANCH BLOCK INFERIOR INFARCT (CITED ON OR BEFORE 20-JUL-2014) ANTEROLATERAL INFARCT (CITED ON OR BEFORE 01-NOV-2016) ABNORMAL ECG WHEN COMPARED WITH ECG OF 12-JUN-2017 13:51, QUESTIONABLE CHANGE IN INITIAL FORCES OF LATERAL LEADS Confirmed by JENNA BUTTERIFELD MD ([id number]) on 07/14/2018 8:05:01 AM Referred By: Confirmed By:JENNA BUTTERFIELD MD
== END 2018-07-13 17:10 | disposition home or self-care (01) ==
LOC: JER 13:31
DX: R25.1 Tremor, unspecified (principal); K59.00 Constipation, unspecified; I10 Essential (primary) hypertension; E78.5 Hyperlipidemia, unspecified; N40.0 Benign prostatic hyperplasia without lower urinary tract symptoms; I49.9 Cardiac arrhythmia, unspecified; Z95.0 Presence of cardiac pacemaker; Z87.891 Personal history of nicotine dependence
CPT/HCPCS: 36415; 80053; 81003; 85025; 85610; 87086; 93005; 93010; 99282-25

== ENCOUNTER 2019-06-12 05:09 | Day surgery (SDC) | payer OTHER, BC | END 2019-06-12 11:25 | disposition home or self-care (01) | LOC: JRADIR 05:09 ==

== ENCOUNTER 2019-12-23 15:03 | Emergency (ER) | payer OTHER, BC ==
[2019-12-23 15:15] VITALS: BMI 28.4
--- NOTE | 2019-12-23 15:47 | PDOC ---
Documentation entered by Jasper Coronado SCRIBE, acting as scribe for Fiona Willis DO. Fiona Willis DO: This documentation has been prepared by the Cliff phillips Daniel, SCRIBE, under my direction and personally reviewed by me in its entirety. I confirm that the documentation accurately reflects all work, treatment, procedures, and medical decision making performed by me. Attending Attestation - Resident Resident Name: Sarina Mota - ED Attending Attestation I have performed the following: I have examined & evaluated the patient, The case was reviewed & discussed with the resident, I agree w/resident's findings & plan, Exceptions are as noted - HPI HPI: 12/23/19 15:48 The patient is an 89 year old male with a past medical history of DVT (coumadin) , HTN, HLD, BPH, Ventricular arrhythmia, and scar in lung field on imaging s/p lung collapse here today for evaluation of rectal bleeding. The patient reports that he has had 3 days of blood in the toilet and after wiping during his bowel movement but states that his stool is brown. He states that prior to the first episode he felt a lump pass while having his bowel movement and then the bleeding began. He notes that he checks his INR monthly with his PCP. Patient denies headache, lightheadedness. Denies fever, chills. Denies chest pain, shortness of breath. Denies nausea, vomiting, diarrhea, abdominal pain. Denies weight loss. Allergies: penicillins, IVP dye PCP: Hema Garrido - Physicial Exam PE: 12/23/19 15:48 Constitutional: Awake, alert, oriented. No acute distress. Head: Normocephalic. Atraumatic Eyes: +pale conjunctiva. PERRL. EOMI. ENT: +pale mucous membranes. Posterior pharynx without exudates or erythema. Uvula midline. Neck: Supple. Full ROM. No lymphadenopathy. Cardiovascular: Regular rate. Regular rhythm. S1, S2 regular. Distal pulses are 2+ and symmetric. Pulmonary/Chest: No evidence of respiratory distress. Clear to auscultation bilaterally No wheezing, rales or rhonchi. Abdominal: Soft and non-distended. There is no tenderness. No rebound, guarding or rigidity. No organomegaly. No palpable masses. Good bowel sounds. Back: No CVA tenderness. Perirectal: +2 mm sebaceous cyst with cottage cheese discharge, completely drained now, no active bleeding, no induration, mild eryhtema surrounding. Musculoskeletal: No edema. No cyanosis. No clubbing. Full range of motion in all extremities. No calf tenderness. Radial/pedal pulses are intact and 2+ bilaterally Skin: Skin is warm and dry. No petechiae. No purpura. Neurological: Alert and oriented to person, place, and time. Cranial nerves II -XII are grossly intact. Normal speech. Strength is grossly symmetric. No sensory deficits. Psychiatric: Good eye contact. Normal interaction, affect and behavior. - Medical Decision Making 12/23/19 15:45 I, Dr. Fiona Willis, DO, attest that this document has been prepared under my direction and personally reviewed by me in its entirety. I further attest, that it accurately reflects all work, treatment, procedures and medical decision -making performed by me. a/p: 89yo male on coumadin for dvt presents for eval of brbpr -states blood on the tissue and a little in the bowel when he wipes -pt denies abd pain -states regular bm -denies lightheaded or dizziness, no cp/sob -has not had colonoscopy -pt sates he felt a "lump" come out when he had a bm a few days ago and then noticed some blood on the tissue -suspect brbpr from hemorrhoid -will send labs, inr, type and screen. pt with pale conjunctiva -will monitor and reassess 12/23/19 16:08 pt with small cyst to the L anterior - around 2mm in diameter with cheesy discharge removed, scant amount of bleeding from the site, no induration or fluctuance 12/23/19 16:10 brown stool per the resident which is neg for heme by labs suspect blood on tissue from cyst next to rectum, no connection with the rectum on rectal exam, no induration, very superficial 12/23/19 16:25 labs pending 12/23/19 16:25 pt with buttock cyst - labs pending, if labs, inr stable, will need surgery follow up if labs stable for outpt cyst therapy and dc to home with pmd follow up 12/23/19 16:27
[2019-12-23 16:18] LABS: BASO % 0.3 % (0-2.0); EOS % 4.1 % (0-4.5); HEMATOCRIT 43.4 % (35.4-49); HEMOGLOBIN 14.9 GM/dL (11.7-16.9); LYMPH % 29.7 % (8-40); MCH 31.2 pg (25.7-33.7); MCHC 34.5 g/dl (32.0-35.9); MEAN CELL VOLUME 90.6 fl (80-96); MEAN PLT VOLUME 8.2 fl (7.5-11.1); MONO % 13.9 % (3.8-10.2); PLATELET COUNT 134 K/MM3 (134-434); RBC 4.78 M/mm3 (4.00-5.60); RDW 17.3 % (11.9-15.9)
--- NOTE | 2019-12-23 16:24 | PDOC ---
History of Present Illness - General Chief Complaint: Rectal Bleed Stated Complaint: RECTAL BLEEDING Time Seen by Provider: 12/23/19 15:26 - History of Present Illness Initial Comments: 12/23/19 16:19 89 year old male with a past medical history of DVT (coumadin), HTN, HLD, BPH, Ventricular arrhythmia, and scar in lung field on imaging s/p lung collapse here today for evaluation of rectal bleeding. The patient reports that he has had 2-3 days of blood drop in the toilet and after wiping during BM but denies any mixed blood with stool or abdominal pain. He further denies F/C/N/V/D or recent change in his medication. He gets monthly blood draws for INR monitoring. Allergies: PCNs PMH: as above PSH: L knee, R shoulder surgery Social Hx: former smoker quit in 1982, denies ETOH and illicit drugs ROS: Constitutional: no fever,no chills HEENT: no throat pain, no dysphagia Cardiovascular: no chest pain, no palpitations Respiratory: no cough, no shortness of breath Gastrointestinal: no Nausea and vomiting, diarrhea or constipation Genitourinary: no urgency,no dysuria Musculoskeletal: no myalgia, no arthralgia Skin: no bruising Neurologic: no weakness Psych: no agitation, no anxiety PE: VSS GEN: NAD Neuro: CN 2-12 intact, motor strength 5/5 in all muscle groups, sensation intact throughout HEENT: PERRLA, moist membrane, clear conjunctiva NECK: no JVD CHEST:vesicular breath sounds b/l no wheezing, no rales appreciated HEART:RRR, no murmur, rubs or gallop ABDOMEN: + BS, soft, NTND Extremities: 2+ pulses, no edema SKIN: no bruises MSK: no arthralgia, no joint tenderness rectal: pustule in the left inferior buttock with pain on palpation.mild erythema and skin brake with mild bleeding but no fluctuation, or tenderness around the lesion Assessment: based on HPI and PE most likely perianal cyst bleeding vs internal hemorrhoid vs diverticulosis . pt on coumadin will need to ensure GI bleed secondary to supratherapeutic INR Plan: CBC, CMP, PT/INR, PTT, mag, EKG, cardiac profile, type and screen will give clindamycin 450 mg if labs stable will discharge wit close f/u with general surgery for further cyst management and with clindamycin 12/23/19 16:27 CBC,CMP WBC 7.0 K/mm3 (4.0-10.0) 12/23/19 15:55 RBC 4.78 M/mm3 (4.00-5.60) 12/23/19 15:55 Hgb 14.9 GM/dL (11.7-16.9) 12/23/19 15:55 Hct 43.4 % (35.4-49) 12/23/19 15:55 MCV 90.6 fl (80-96) 12/23/19 15:55 MCH 31.2 pg (25.7-33.7) 12/23/19 15:55 MCHC 34.5 g/dl (32.0-35.9) 12/23/19 15:55 RDW 17.3 % (11.9-15.9) H 12/23/19 15:55 Plt Count 134 K/MM3 (134-434) 12/23/19 15:55 MPV 8.2 fl (7.5-11.1) 12/23/19 15:55 Absolute Neuts (auto) 3.6 K/mm3 (1.5-8.0) 12/23/19 15:55 Neutrophils % 52.0 % (42.8-82.8) 12/23/19 15:55 Lymphocytes % 29.7 % (8-40) 12/23/19 15:55 Monocytes % 13.9 % (3.8-10.2) H 12/23/19 15:55 Eosinophils % 4.1 % (0-4.5) 12/23/19 15:55 Basophils % 0.3 % (0-2.0) 12/23/19 15:55 Nucleated RBC % 0 % (0-0) 12/23/19 15:55 Sodium 143 mmol/L (136-145) 12/23/19 15:55 Potassium 4.3 mmol/L (3.5-5.1) 12/23/19 15:55 Chloride 111 mmol/L (98-107) H 12/23/19 15:55 Carbon Dioxide 25 mmol/L (21-32) 12/23/19 15:55 Anion Gap 7 MMOL/L (8-16) L 03/01/20 15:55 BUN 27.5 mg/dL (7-18) H 12/23/19 15:55 Creatinine 2.3 mg/dL (0.55-1.3) H 12/23/19 15:55 Est GFR (CKD-EPI)AfAm 28.13 12/23/19 15:55 Est GFR (CKD-EPI)NonAf 24.27 12/23/19 15:55 Random Glucose 130 mg/dL (74-106) H 12/23/19 15:55 Calcium 8.8 mg/dL (8.5-10.1) 12/23/19 15:55 Magnesium 2.2 mg/dL (1.8-2.4) 12/23/19 15:55 Total Bilirubin 0.6 mg/dL (0.2-1) 12/23/19 15:55 AST 28 U/L (15-37) 12/23/19 15:55 ALT 38 U/L (13-61) 12/23/19 15:55 Alkaline Phosphatase 92 U/L (45-117) 12/23/19 15:55 Creatine Kinase 283 U/L (26-308) 12/23/19 15:55 Creatine Kinase Index 1.0 % (0.0-5.0) 12/23/19 15:55 CK-MB (CK-2) 2.9 ng/mL (0.5-3.6) 12/23/19 15:55 Troponin I < 0.02 ng/ml (0.00-0.05) 12/23/19 15:55 Total Protein 7.3 g/dl (6.4-8.2) 12/23/19 15:55 Albumin 4.0 g/dl (3.4-5.0) 12/23/19 15:55 cbc unremarkable, CMP e/o kidney injury but around baseline (pt Cr in the last year has been fluctuating around 1.8-2.2) cardiac prfile negative INR 3.17 PT 37.9 PTT 49.4 FOBT negative which makes rectal bleed least likely and bleeding from the cyst more likely will advise to skip one dose of warfarin in the setting of midly supratherapeutic INR, call Dr Garrido his PCP tomorrow to discuss his warfarin. Also advised pt to take the antibiotic clindamycin 450 three times a day for 10 days and to call one of the general surgeon provided for further care and evaluation of cyst. Past History - Past Medical History Allergies/Adverse Reactions: Allergies Allergy/AdvReac Type Severity Reaction Status Date / Time Penicillins Allergy Swelling Verified 12/23/19 15:15 IVP DYE Allergy Hives Uncoded 12/23/19 15:15 Home Medications: Ambulatory Orders Amlodipine Besylate [Norvasc -] 5 mg PO DAILY 11/01/16 Carvedilol [Coreg -] 25 mg PO DAILY 11/01/16 Folic Acid 1 mg PO DAILY 11/01/16 Furosemide [Lasix -] 20 mg PO DAILY 11/01/16 Losartan Potassium [Cozaar -] 100 mg PO DAILY 11/01/16 Omeprazole 40 mg PO DAILY 11/01/16 Simvastatin [Zocor -] 20 mg PO HS 11/01/16 Tamsulosin HCl [Flomax -] 0.4 mg PO DAILY 11/01/16 Warfarin Sodium [Coumadin] 2 mg PO DAILY 11/01/16 Clindamycin [Cleocin -] 450 mg PO Q8H #90 capsule 12/23/19 Ezetimibe 10 mg PO DAILY 12/23/19 Finasteride 5 mg PO DAILY 12/23/19 Anemia: No Asthma: No Cancer: No Cardiac Disorders: Yes (MD,VENTRICULAR ARRYTHMIA) CVA: No COPD: No CHF: No Dementia: No Diabetes: No GI Disorders: Yes (ABDOMINAL PAIN,DIVERTICULITIS,DIARRHEA) Disorders: No HTN: Yes Hypercholesterolemia: Yes Liver Disease: No Seizures: No Thyroid Disease: No - Surgical History Appendectomy: Yes 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[employer]) Cholecystectomy: Yes Lung Surgery: No Neurologic Surgery: No Orthopedic Surgery: Yes (H/O RIGHT FX HIP WITH HARDWARE) - Immunization History Immunization Up to Date: Yes - Psycho Social/Smoking Cessation Hx Smoking Status: No Smoking History: Never smoked Have you smoked in the past 12 months: No Number of Cigarettes Smoked Daily: 0 If you are a former smoker, when did you quit?: 40YRS AGO Hx Alcohol Use: No Drug/Substance Use Hx: No Substance Use Type: None Hx Substance Use Treatment: No *Physical Exam - Vital Signs Last Vital Signs Temp Pulse Resp BP Pulse Ox 98.2 F 62 18 126/67 98 12/23/19 15:12 12/23/19 15:12 12/23/19 15:12 12/23/19 15:12 12/23/19 15:12 ED Treatment Course - LABORATORY CBC & Chemistry Diagram: 12/23/19 15:55 12/23/19 15:55 - ADDITIONAL ORDERS Additional order review: Laboratory Results 12/23/19 15:50 Stool Occult Blood Negative Medical Decision Making - Medical Decision Making cbc unremarkable, CMP e/o kidney injury but around baseline (pt Cr in the last year has been fluctuating around 1.8-2.2) cardiac prfile negative INR 3.17 PT 37.9 PTT 49.4 FOBT negative which makes rectal bleed least likely and bleeding from the cyst more likely will advise to skip one dose of warfarin in the setting of midly supratherapeutic INR, call Dr Garrido his PCP tomorrow to discuss his warfarin. Also advised pt to take the antibiotic clindamycin 450 three times a day for 10 days and to call one of the general surgeon provided for further care and evaluation of cyst. Discharge - Discharge Information Problems reviewed: Yes Clinical Impression/Diagnosis: Supratherapeutic INR, Cyst of perianal area Condition: Stable Disposition: HOME - Admission No - Additional Discharge Information Prescriptions: Clindamycin [Cleocin -] 450 mg PO Q8H #90 capsule - Follow up/Referral Referrals: Abhijeet Chase MD [Staff Physician] - Call tomorrow Celso Ibarra MD [Staff Physician] - Call tomorrow - Patient Discharge Instructions Patient Printed Discharge Instructions: DI for Rectal Bleeding Additional Instructions: you came to the ED because of blood spot during bowel movement for a few days. we tested you blood and tested your stool; your blood levels are stable and we did not find any blood in your stool. We did however found a cyst on your left buttock around the anus which we drained; please take the antibiotic clindamycin three times a day for 10 days. Also please call the general surgery ( Dr Chase or Dr Ibarra) to schedule an appointment to further care for your perirectal cyst. Also please also call Dr Garrido tomorrow to inform him of your elevated INR If you begin to experience increased rectal bleeding, abdominal pain, shortness of breath, chest pain, fever, chills please return to the emergency room immediately - Post Discharge Activity
[2019-12-23 16:35] LABS: INR 3.17 (0.83-1.09); PROTHROMBIN TIME (PATIENT) 37.9 SEC (9.7-13.0)
[2019-12-23] MEDS ORDERED: CLINDAMYCIN HCL 150 MG CAPSULE (FP) PO ONE (16:36)
[2019-12-23 16:37] LABS: ACTIVATED PTT 49.4 SECONDS (25.2-36.5)
[2019-12-23 16:41] LABS: ALK PHOS 92 U/L (45-117); ANION GAP 7 MMOL/L (8-16); BILIRUBIN,TOTAL 0.6 mg/dL (0.2-1); BLOOD UREA NITROGEN 27.5 mg/dL (7-18); CALCIUM 8.8 mg/dL (8.5-10.1); CHLORIDE 111 mmol/L (98-107); CO2 25 mmol/L (21-32); CREATININE 2.3 mg/dL (0.55-1.3); GLUCOSE,RANDOM 130 mg/dL (74-106); MAGNESIUM 2.2 mg/dL (1.8-2.4); POTASSIUM 4.3 mmol/L (3.5-5.1); SGOT/AST 28 U/L (15-37); SGPT/ALT 38 U/L (13-61); SODIUM 143 mmol/L (136-145); TOT PROT 7.3 g/dl (6.4-8.2)
[2019-12-23] MEDS ORDERED: CLINDAMYCIN HCL 150 MG CAPSULE (FP) ONE (16:49)
[2019-12-23 18:23] VITALS: BP 129/67; PULSE 67; TEMP 98
--- NOTE | 2019-12-24 09:25 | EKG ---
Test Reason : Blood Pressure : / mmHG Vent. Rate : 066 BPM Atrial Rate : 066 BPM P-R Int : 230 ms QRS Dur : 154 ms QT Int : 464 ms P-R-T Axes : 029 -77 009 degrees QTc Int : 486 ms SINUS RHYTHM WITH 1ST DEGREE A-V BLOCK LEFT AXIS DEVIATION /LAFB RIGHT BUNDLE BRANCH BLOCK INFERIOR INFARCT (CITED ON OR BEFORE 20-JUL-2014) ANTEROLATERAL INFARCT (CITED ON OR BEFORE 01-NOV-2016) ABNORMAL ECG WHEN COMPARED WITH ECG OF 13-JUL-2018 15:17, NONSPECIFIC T WAVE ABNORMALITY HAS REPLACED INVERTED T WAVES IN ANTERIOR LEADS Confirmed by Cinthya Schmidt ([id number]) on 12/24/2019 9:25:33 AM Referred By: Confirmed By:Cinthya Schmidt
== END 2019-12-23 18:52 | disposition home or self-care (01) ==
LOC: SUPCPDRO 15:03 → JER 15:03
DX: K62.89 Other specified diseases of anus and rectum (principal); R79.1 Abnormal coagulation profile; I25.10 Atherosclerotic heart disease of native coronary artery without angina pectoris; I10 Essential (primary) hypertension; I25.2 Old myocardial infarction; E78.5 Hyperlipidemia, unspecified; N40.0 Benign prostatic hyperplasia without lower urinary tract symptoms; Z86.79 Personal history of other diseases of the circulatory system; Z95.810 Presence of automatic (implantable) cardiac defibrillator; Z87.19 Personal history of other diseases of the digestive system; Z88.0 Allergy status to penicillin; Z91.041 Radiographic dye allergy status
CPT/HCPCS: 36415; 80053; 82272; 82550; 82553; 83735; 84484; 85025; 85610; 85730; 86850; 86900; 86901; 93005; 93010; 99284-25

== ENCOUNTER 2020-01-02 13:34 | Emergency (ER) | payer OTHER, BC ==
[2020-01-02 14:11] VITALS: BMI 28.2
--- NOTE | 2020-01-02 15:08 | PDOC ---
History of Present Illness - General Chief Complaint: Pain, Acute Stated Complaint: ABD PAIN Time Seen by Provider: 01/02/20 15:03 - History of Present Illness Initial Comments: 01/02/20 15:55 89 y/o M hx of DVT (coumadin), HTN, HLD, BPH, Ventricular arrhythmia, and scar in lung field s/p lung collapse, presents to the ED with 5 days of vomiting and epigastric burning pain after meals. Pt reports pain radiates to his chest and mostly occures when he drinks liquids. He has a hx of abdominal surgeries (cholechystectomy and appendectomy). He denies any fever, shortness of breath, sick contacts, urinary symptoms. 01/02/20 16:02 Past History - Past Medical History Allergies/Adverse Reactions: Allergies Allergy/AdvReac Type Severity Reaction Status Date / Time Penicillins Allergy Swelling Verified 01/02/20 14:04 IVP DYE Allergy Hives Uncoded 01/02/20 14:04 Home Medications: Ambulatory Orders Amlodipine Besylate [Norvasc -] 5 mg PO DAILY 11/01/16 Carvedilol [Coreg -] 25 mg PO DAILY 11/01/16 Folic Acid 1 mg PO DAILY 11/01/16 Furosemide [Lasix -] 20 mg PO DAILY 11/01/16 Losartan Potassium [Cozaar -] 100 mg PO DAILY 11/01/16 Omeprazole 40 mg PO DAILY 11/01/16 Simvastatin [Zocor -] 20 mg PO HS 11/01/16 Tamsulosin HCl [Flomax -] 0.4 mg PO DAILY 11/01/16 Warfarin Sodium [Coumadin] 2 mg PO ASDIR 11/01/16 Ezetimibe 10 mg PO DAILY 12/23/19 Finasteride 5 mg PO DAILY 12/23/19 Linaclotide [Linzess] 145 mcg PO DAILY 01/02/20 Warfarin Sodium 3 mg PO ASDIR 01/02/20 Anemia: No Asthma: No Cancer: No Cardiac Disorders: Yes (AK,VENTRICULAR ARRYTHMIA) CVA: No COPD: No CHF: No Dementia: No Diabetes: No GI Disorders: Yes (ABDOMINAL PAIN,DIVERTICULITIS,DIARRHEA) Disorders: No HTN: Yes Hypercholesterolemia: Yes Liver Disease: No Seizures: No Thyroid Disease: No - Surgical History Appendectomy: Yes 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[employer]) Cholecystectomy: Yes Lung Surgery: No Neurologic Surgery: No Orthopedic Surgery: Yes (H/O RIGHT FX HIP WITH HARDWARE) - Immunization History Immunization Up to Date: Yes - Psycho Social/Smoking Cessation Hx Smoking Status: No Smoking History: Unknown if ever smoked Have you smoked in the past 12 months: No Number of Cigarettes Smoked Daily: 0 If you are a former smoker, when did you quit?: 40YRS AGO Hx Alcohol Use: No Drug/Substance Use Hx: No Substance Use Type: None Hx Substance Use Treatment: No *Physical Exam - Vital Signs Last Vital Signs Temp Pulse Resp BP Pulse Ox 97.9 F 77 18 127/73 99 01/02/20 14:10 01/02/20 14:10 01/02/20 14:10 01/02/20 14:10 01/02/20 14:10 - Physical Exam 01/02/20 15:59 GENERAL: Awake, alert, and fully oriented, in no acute distress HEAD: No signs of trauma, normocephalic, atraumatic EYES: PERRLA, EOMI, sclera anicteric, conjunctiva clear ENT: Auricles normal inspection, hearing grossly normal, nares patent, oropharynx clear without exudates. Moist mucosa NECK: Normal ROM, supple, no lymphadenopathy, JVD, or masses LUNGS: No distress, speaks full sentences, clear to auscultation bilaterally HEART: Regular rate and rhythm, normal S1 and S2, no murmurs, rubs or gallops, peripheral pulses normal and equal bilaterally. ABDOMEN: Soft, nontender, normoactive bowel sounds. No guarding, no rebound. No masses EXTREMITIES : Normal inspection, Normal range of motion, no edema. No clubbing or cyanosis NEUROLOGICAL: Cranial nerves II through XII grossly intact. Normal speech, normal gait, no focal sensorimotor deficits SKIN: Warm, Dry, normal turgor, no rashes or lesions noted ED Treatment Course - LABORATORY CBC & Chemistry Diagram: 01/02/20 15:50 01/02/20 15:00 Medical Decision Making - Medical Decision Making 01/02/20 16:04 89 y/o M hx of DVT (coumadin), HTN, HLD, BPH, Ventricular arrhythmia, and scar in lung field s/p lung collapse, workup acs vs gerd/gastritis vs sbo/partial sbo cbc, cmp, ekg, troponin, ct abdomen and pelvis with oral contrast, chest x-ray 01/02/20 18:12 chest x-ray : no acute disease elevated creatinine 2.4 around pt baseline Ekg: sinus rhythm 1st degree AV block no St elevations or depressions. pt has AICD 01/02/20 19:01 signed out to night resident. 01/04/20 11:38 Discharge - Discharge Information Problems reviewed: Yes Clinical Impression/Diagnosis: Abdominal pain Qualifiers: Abdominal location: epigastric Qualified Code(s): R10.13 - Epigastric pain Condition: Stable Disposition: HOME - Follow up/Referral Referrals: Dharmesh Nevarez DO [Staff Physician] - Veronika Barker MD [Staff Physician] - Armando Ward MD [Staff Physician] - Hema Garrido MD [Primary Care Provider] - - Patient Discharge Instructions Patient Printed Discharge Instructions: DI for Abdominal Pain-Adult Additional Instructions: You were seen in the ER for abdominal pain. The blood work we did is normal and the CT scan does not show signs of obstruction. I recommend following up with a GI doctor. Information is provided below. I highly recommend that you make an appointment with Dr. Garrido this week as well regarding this ED visit. Come back to the ER if you have worsening abdominal pain, start vomiting, have fever, have blood in the stool or vomit or if any new or concerning symptom develops. Thank you - Post Discharge Activity
[2020-01-02 15:18] LABS: BASO % 0.2 % (0-2.0); EOS % 4.8 % (0-4.5); HEMATOCRIT 44.4 % (35.4-49); HEMOGLOBIN 15.3 GM/dL (11.7-16.9); LYMPH % 27.3 % (8-40); MCH 31.1 pg (25.7-33.7); MCHC 34.5 g/dl (32.0-35.9); MEAN PLT VOLUME 8.2 fl (7.5-11.1); MONO % 12.1 % (3.8-10.2); NEUT % 55.6 % (42.8-82.8); PLATELET COUNT 140 K/MM3 (134-434); RBC 4.94 M/mm3 (4.00-5.60); RDW 16.8 % (11.9-15.9); WHITE BLOOD COUNT 6.5 K/mm3 (4.0-10.0)
[2020-01-02 15:25] LABS: INR 2.44 (0.83-1.09)
[2020-01-02 15:28] LABS: ACTIVATED PTT 46.4 SECONDS (25.2-36.5)
[2020-01-02] MEDS ORDERED: SODIUM CHLORIDE 0.9% 500 ML INFUS.BAG IV ONE (15:42)
[2020-01-02] MEDS ORDERED: MAG HYDROX/AL HYDROX/SIMETH 30 ML UNIT-DOSE CUP PO ONE (15:45)
[2020-01-02 15:46] LABS: ALBUMIN 4.2 g/dl (3.4-5.0); ALK PHOS 97 U/L (45-117); ANION GAP 8 MMOL/L (8-16); BILIRUBIN,TOTAL 0.7 mg/dL (0.2-1); BLOOD UREA NITROGEN 32.5 mg/dL (7-18); CALCIUM 8.8 mg/dL (8.5-10.1); CHLORIDE 110 mmol/L (98-107); CO2 25 mmol/L (21-32); CREATININE 2.4 mg/dL (0.55-1.3); GLUCOSE,RANDOM 105 mg/dL (74-106); LIPASE 145 U/L (73-393); POTASSIUM 4.6 mmol/L (3.5-5.1); SGOT/AST 29 U/L (15-37); SGPT/ALT 31 U/L (13-61); SODIUM 143 mmol/L (136-145); TOT PROT 7.5 g/dl (6.4-8.2)
--- NOTE | 2020-01-02 16:15 | PDOC ---
Documentation entered by Perla Whaley SCRIBE, acting as scribe for Giacomo Gordon MD. Giacomo Gordon MD: This documentation has been prepared by the Judd phillips Xhesika, SCRIBE, under my direction and personally reviewed by me in its entirety. I confirm that the documentation accurately reflects all work, treatment, procedures, and medical decision making performed by me. Attending Attestation - Resident Resident Name: TimoJolly - ED Attending Attestation I have performed the following: I have examined & evaluated the patient, The case was reviewed & discussed with the resident, I agree w/resident's findings & plan, Exceptions are as noted - HPI HPI: 01/02/20 15:42 The patient is an 89 year old male with a past medical history of DVT (coumadin), HTN, HLD, BPH, Ventricular arrhythmia, and scar in lung field on imaging s/p lung collapse who presents to the ED for 5 days of burning epigastric pain radiating to his chest. Pt reports associated nausea and vomiting. The patient denies shortness of breath, headache and dizziness. Denies fever, chills, cough, diarrhea and constipation. Denies dysuria, frequency, urgency and hematuria. Allergies: penicillins, IVP dye PCP: Hema Garrido - Physicial Exam PE: 01/02/20 16:14 Patient is awake and alert, nontoxic-appearing, in mild distress Normocephalic, atraumatic PERRLA, EOMI, no scleral icterus CTA RRR abdomen is soft, distended, tympanitic, epigastric Left upper quadrant tenderness to palpation, bowel sounds hyperactive - Medical Decision Making 01/02/20 16:14 89-year-old male with multiple comorbidities, history of multiple abdominal surgeries presents to the ER with epigastric and substernal discomfort, associated with numerous bouts of nonbloody nonbilious vomiting and intolerance of p.o. solids and liquids. I suspect SBO. Will obtain CT of abdomen pelvis with p.o. contrast. Will hydrate. Will obtain CBC/CMP/lipase. Will reassess.
[2020-01-02] MEDS ORDERED: FAMOTIDINE 20 MG/50 ML IVPB 20 MG/50 ML MG IVPB ONE ×2 (16:40→16:47)
[2020-01-02] MEDS ORDERED: MAG HYDROX/AL HYDROX/SIMETH 30 ML UNIT-DOSE CUP ONE (16:47)
--- NOTE | 2020-01-02 19:15 | PDOC ---
*Physical Exam - Vital Signs Last Vital Signs Temp Pulse Resp BP Pulse Ox 97.4 F L 66 19 145/75 97 01/02/20 17:55 01/02/20 17:55 01/02/20 17:55 01/02/20 17:55 01/02/20 17:55 ED Treatment Course - LABORATORY CBC & Chemistry Diagram: 01/02/20 15:50 01/02/20 15:00 - ADDITIONAL ORDERS Additional order review: Laboratory Results 01/02/20 01/02/20 15:00 15:00 PT with INR 29.00 H INR 2.44 H PTT (Actin FS) 46.4 H Sodium 143 Potassium 4.6 Chloride 110 H Carbon Dioxide 25 Anion Gap 8 BUN 32.5 H Creatinine 2.4 H Est GFR (CKD-EPI)AfAm 26.72 Est GFR (CKD-EPI)NonAf 23.05 Random Glucose 105 Calcium 8.8 Total Bilirubin 0.7 AST 29 ALT 31 Alkaline Phosphatase 97 Troponin I < 0.02 Total Protein 7.5 Albumin 4.2 Lipase 145 01/02/20 15:00 RBC 4.94 MCV 90.0 MCHC 34.5 RDW 16.8 H MPV 8.2 Neutrophils % 55.6 Lymphocytes % 27.3 Monocytes % 12.1 H Eosinophils % 4.8 H Basophils % 0.2 - Medications Given in the ED: ED Medications Discontinued Medications Generic Name Dose Route Start Last Admin Trade Name Freq PRN Reason Stop Dose Admin Al Hydroxide/Mg Hydroxide 30 ml 01/02/20 15:45 01/02/20 16:55 Mylanta Oral Suspension - PO 01/02/20 15:46 30 ml ONCE ONE Administration Famotidine/Sodium Chloride 20 mg in 50 mls @ 100 mls/hr 01/02/20 16:40 01/02/20 17:00 Pepcid 20 Mg Premixed Ivpb - IVPB 01/02/20 17:09 100 mls/hr ONCE ONE Administration Sodium Chloride 1,000 ml 01/02/20 15:42 01/02/20 17:00 Normal Saline - IV 01/02/20 15:43 1,000 ml ONCE ONE Administration Medical Decision Making - Medical Decision Making 01/02/20 19:16 sign out from day resident. 89 y/o M hx of DVT (coumadin), HTN, HLD, BPH, Ventricular arrhythmia, and scar in lung field s/p lung collapse, presents to the ED with 5 days of vomiting and epigastric burning pain after meals. Pt reports pain radiates to his chest and mostly occures when he drinks liquids. labs wnl. no leukocytosis. INR therapeutic. Cr at baseline. normal lfts. pending CTAP with po contrast. HEART score 4-5. ekg does not show signs of acute ischemia. 01/02/20 19:17 01/02/20 20:08 CT negative for sbo. no acute pathology labs wnl on reassessment, pt is not tender. pt is stable to go home. has PPI (omeprazole 40mg) advised pt to take daily prior to meals. will f/u with pmd and gi referral provided. Discharge - Discharge Information Problems reviewed: Yes Clinical Impression/Diagnosis: Abdominal pain Qualifiers: Abdominal location: epigastric Qualified Code(s): R10.13 - Epigastric pain Condition: Improved - Admission No - Follow up/Referral Referrals: Hema Garrido MD [Primary Care Provider] - Dharmesh Nevarez DO [Staff Physician] - Armando Ward MD [Staff Physician] - Veronika Barker MD [Staff Physician] - - Patient Discharge Instructions Patient Printed Discharge Instructions: DI for Abdominal Pain-Adult Additional Instructions: You were seen in the ER for abdominal pain. The blood work we did is normal and the CT scan does not show signs of obstruction. I recommend following up with a GI doctor. Information is provided below. I highly recommend that you make an appointment with Dr. Garrido this week as well regarding this ED visit. Come back to the ER if you have worsening abdominal pain, start vomiting, have fever, have blood in the stool or vomit or if any new or concerning symptom develops. Thank you - Post Discharge Activity
[2020-01-02 19:39] LABS: BASO % 0.4 % (0-2.0); EOS % 4.2 % (0-4.5); HEMATOCRIT 45.4 % (35.4-49); HEMOGLOBIN 15.3 GM/dL (11.7-16.9); LYMPH % 29.8 % (8-40); MCH 30.8 pg (25.7-33.7); MCHC 33.8 g/dl (32.0-35.9); MEAN CELL VOLUME 91.1 fl (80-96); MEAN PLT VOLUME 8.8 fl (7.5-11.1); MONO % 11.2 % (3.8-10.2); NEUT % 54.4 % (42.8-82.8); PLATELET COUNT 142 K/MM3 (134-434); RBC 4.98 M/mm3 (4.00-5.60); WHITE BLOOD COUNT 6.6 K/mm3 (4.0-10.0)
--- NOTE | 2020-01-02 20:10 | PDOC ---
*Physical Exam - Vital Signs Last Vital Signs Temp Pulse Resp BP Pulse Ox 97.4 F L 66 19 145/75 97 01/02/20 17:55 01/02/20 17:55 01/02/20 17:55 01/02/20 17:55 01/02/20 17:55 - Physical Exam 01/02/20 20:04 gen: aaox3, nad abd: soft, nt/nd +bs ED Treatment Course - LABORATORY CBC & Chemistry Diagram: 01/02/20 15:50 01/02/20 15:00 - ADDITIONAL ORDERS Additional order review: Laboratory Results 01/02/20 01/02/20 15:00 15:00 PT with INR 29.00 H INR 2.44 H PTT (Actin FS) 46.4 H Sodium 143 Potassium 4.6 Chloride 110 H Carbon Dioxide 25 Anion Gap 8 BUN 32.5 H Creatinine 2.4 H Est GFR (CKD-EPI)AfAm 26.72 Est GFR (CKD-EPI)NonAf 23.05 Random Glucose 105 Calcium 8.8 Total Bilirubin 0.7 AST 29 ALT 31 Alkaline Phosphatase 97 Troponin I < 0.02 Total Protein 7.5 Albumin 4.2 Lipase 145 01/02/20 01/02/20 15:50 15:00 RBC 4.98 4.94 MCV 91.1 90.0 MCHC 33.8 34.5 RDW 17.0 H 16.8 H MPV 8.8 8.2 Neutrophils % 54.4 55.6 Lymphocytes % 29.8 27.3 Monocytes % 11.2 H 12.1 H Eosinophils % 4.2 4.8 H Basophils % 0.4 0.2 - Medications Given in the ED: ED Medications Discontinued Medications Generic Name Dose Route Start Last Admin Trade Name Freq PRN Reason Stop Dose Admin Al Hydroxide/Mg Hydroxide 30 ml 01/02/20 15:45 01/02/20 16:55 Mylanta Oral Suspension - PO 01/02/20 15:46 30 ml ONCE ONE Administration Famotidine/Sodium Chloride 20 mg in 50 mls @ 100 mls/hr 01/02/20 16:40 01/02/20 17:00 Pepcid 20 Mg Premixed Ivpb - IVPB 01/02/20 17:09 100 mls/hr ONCE ONE Administration Sodium Chloride 1,000 ml 01/02/20 15:42 01/02/20 17:00 Normal Saline - IV 01/02/20 15:43 1,000 ml ONCE ONE Administration Medical Decision Making - Medical Decision Making 01/02/20 20:04 a/p: 89yo male with abd pain and n/v earlier -signed out pending labs and ct -ct without acute pathology and no sbo -labs reviewed and stable -pt states he feels better and wants to go home -discussed all reasons to return to the ER and need for follow up -stable for dc to home and follow up with pmd and gi Discharge - Discharge Information Problems reviewed: Yes Clinical Impression/Diagnosis: Abdominal pain Qualifiers: Abdominal location: epigastric Qualified Code(s): R10.13 - Epigastric pain Condition: Stable Disposition: HOME - Admission No - Follow up/Referral Referrals: Dharmesh Nevarez DO [Staff Physician] - Veronika Barker MD [Staff Physician] - Armando Ward MD [Staff Physician] - Hema Garrido MD [Primary Care Provider] - - Patient Discharge Instructions Patient Printed Discharge Instructions: DI for Abdominal Pain-Adult Additional Instructions: You were seen in the ER for abdominal pain. The blood work we did is normal and the CT scan does not show signs of obstruction. I recommend following up with a GI doctor. Information is provided below. I highly recommend that you make an appointment with Dr. Garrido this week as well regarding this ED visit. Come back to the ER if you have worsening abdominal pain, start vomiting, have fever, have blood in the stool or vomit or if any new or concerning symptom de velops. Thank you - Post Discharge Activity
[2020-01-02 21:08] VITALS: BP 128/80; PULSE 72; TEMP 97.1
[2020-01-02] MEDS ORDERED: FAMOTIDINE 20 MG/50 ML IVPB 20 MG/50 ML MG IVPB SCH (22:00)
--- NOTE | 2020-01-03 10:28 | EKG ---
Test Reason : Blood Pressure : / mmHG Vent. Rate : 071 BPM Atrial Rate : 071 BPM P-R Int : 230 ms QRS Dur : 146 ms QT Int : 452 ms P-R-T Axes : 039 -79 024 degrees QTc Int : 491 ms POOR DATA QUALITY, INTERPRETATION MAY BE ADVERSELY AFFECTED SINUS RHYTHM WITH 1ST DEGREE A-V BLOCK LEFT AXIS DEVIATION NON-SPECIFIC INTRA-VENTRICULAR CONDUCTION BLOCK INFERIOR INFARCT (CITED ON OR BEFORE 20-JUL-2014) ANTEROLATERAL INFARCT (CITED ON OR BEFORE 01-NOV-2016) ABNORMAL ECG WHEN COMPARED WITH ECG OF 23-DEC-2019 16:25, NO SIGNIFICANT CHANGE WAS FOUND Confirmed by KUNAL FARRIS MD ([id number]) on 01/03/2020 10:27:44 AM Referred By: Confirmed By:KUNAL FARRIS MD
== END 2020-01-02 21:17 | disposition home or self-care (01) ==
LOC: JER 13:34
PROC: 3E033GC Introduction of Other Therapeutic Substance into Peripheral Vein, Percutaneous Approach (ICD-10-PCS; principal; 2020-01-02)
PROC: 3E0337Z Introduction of Electrolytic and Water Balance Substance into Peripheral Vein, Percutaneous Approach (ICD-10-PCS; 2020-01-02)
DX: R10.13 Epigastric pain (principal); Z88.0 Allergy status to penicillin; Z91.041 Radiographic dye allergy status; I10 Essential (primary) hypertension; E78.5 Hyperlipidemia, unspecified; N40.0 Benign prostatic hyperplasia without lower urinary tract symptoms; I47.0 Re-entry ventricular arrhythmia; I49.8 Other specified cardiac arrhythmias
CPT/HCPCS: 36415; 71045-TC-FY; 74176-TC; 80053; 83690; 84484; 85025; 85610; 85730; 93005; 93010; 96365; 99285-25